=== PATIENT | male | born 1965 | race Caucasian/White ===

== ENCOUNTER 2018-04-20 15:12 | Outpatient (CLI) | payer OTHER, SELFPAY ==
--- NOTE | 2018-04-20 15:24 | DI.RAD_ITS ---
SYMPTOMS/DIAGNOSIS: LEFT POSTERIOR KNEE PAIN LEFT KNEE: Comparison is made with March,. The joint spaces are well maintained. There is mild periarticular spurring at the patellofemoral and medial femoral tibial joints. No joint effusion is seen. IMPRESSION: Mild degenerative changes.
== END 2018-04-20 15:32 ==
PROVIDERS: PCP Nurse Practitioner; Visit Provider Nurse Practitioner Adult Health
DX: M25.562 Pain in left knee (principal); M17.12 Unilateral primary osteoarthritis, left knee
CPT/HCPCS: 73564

== ENCOUNTER 2018-10-15 00:49 | Outpatient (CLI) | payer OTHER, SELFPAY ==
--- NOTE | 2018-10-15 14:42 | DI.MRI_ITS ---
SYMPTOMS/DIAGNOSIS: POSTERIOR KNEE PAIN, MEDIAL AND UNDERNEATH PATELLA, SWELLING, ? MEDIAL MENISCUS TEAR MRI OF THE LEFT KNEE: Routine noncontrast examination was performed. No priors. The anterior cruciate and posterior cruciate ligaments are intact, as are both the medial and lateral collateral ligaments, extensor mechanism, medial and lateral retinaculum and popliteus tendon. There is linear increased signal seen in the body of the medial meniscus. This may represent a tear versus degeneration. The lateral meniscus appears unremarkable. There is mild thinning of the articular cartilage in the medial femorotibial joint space. The articular cartilage is otherwise well maintained. There is a normal amount of fluid seen in the joint space. No suspicious soft tissue masses or focal fluid collections are seen. There is mild edema seen in the subchondral bone in the tibial plateau, but no evidence of an occult fracture or avascular necrosis is seen. The muscles show normal signal and size. IMPRESSION: 1. Tear versus degeneration involving the medial meniscus. 2. No evidence of a ligament tear.
== END 2018-10-15 01:09 ==
PROVIDERS: PCP Nurse Practitioner; Visit Provider Orthopaedic Surgery
DX: M25.562 Pain in left knee (principal); M23.304 Other meniscus derangements, unspecified medial meniscus, left knee
CPT/HCPCS: 73721

== ENCOUNTER 2018-10-21 12:26 | Day surgery (SDC) | payer OTHER, SELFPAY ==
[2018-10-21] VITALS (7 sets, daily range): BP systolic 128–143; BP diastolic 70–86; PULSE 65–78; RESP 13–20; TEMP 35.6–36.5; O2SAT 94–98
[2018-10-21] MEDS: Lactated Ringers 1,000 ML 80 ML IV ×2 (12:57→15:50)
--- NOTE | 2018-10-21 15:11 | W.PM.DSUDISC ---
Discharge Plan Disposition Patient Disposition: HOME Condition: Good Discharge Details Reason For Visit: INTERNAL DERANGEMENT L KNEE Attending Provider: David Hylton Primary Care Provider: Yael Almaguer Home Meds and New Rx's Prescriptions: New ibuprofen 800 mg tablet 800 mg PO TID Qty: 30 RF: 0 oxycodone-acetaminophen 5-325 mg tablet 1 tab PO Q6H PRN (Reason: pain) Qty: 10 RF: 0 Continued trazodone 50 MG tablet 50 mg PO HS Qty: 90 RF: 3 bisoprolol fumarate 10 MG tablet 10 mg PO DAILY Qty: 90 RF: 3 acyclovir 400 MG tablet 400 mg PO BID PRNRF: 0 Discharge Instructions Additional Instructions: Elevate L leg on 1-2 pillows as much as possible for next 48hours. Apply cryocuff to L knee every 4 hours for 1 hour each time. May leave it on and run continuously if you prefer. Crutches to walk. Put as much weight on L leg as your discomfort allows. Discontinue crutches when you can step on L leg with only mild pain. Remove dressings, shower, and get incisions wet after 48 hours. May leave incisions uncovered when they are dry and sealed. Outpatient physical therapy on Friday to mobilize L knee post-arthroscopic lateral meniscectomy. Follow up with in 2 weeks. Take ibuprofen 800 mg 3 times/day for 10 days for pain and inflammation. Take the oxycodone if needed, for breakthru pain. Stand Alone Forms: Anes.Nerve Block Instructions Referrals: David Hylton MD [ [facility] STAFF PHYSICIAN] - (f/u in 2 weeks.) Equipment/Supplies: Partial Weight Bearing Crutches Activity:: Activity as Tolerated Remove Dressings/Wound Care:: 48 hours Shower/Bathe:: 48 hours Diet:: As Tolerated Discharge Orders Discharge Orders: Discharge Order (Routine); Ordered 10/21/18 Ordered By: David Hylton DS: Diagnosis Discharge Diagnosis (1) Internal derangement of left knee: Status: Acute
[2018-10-21] MEDS: fentaNYL 100 MCG/2 ML VIAL IVP ×2 (15:42→15:51)
[2018-10-21] MEDS: HYDROcodone 5/Acetaminophen 325 TAB PO (16:41)
--- NOTE | 2018-10-23 16:04 | ROE_ITS ---
DATE OF PROCEDURE: October 21, 2018 PREOPERATIVE DIAGNOSIS: Internal derangement left knee. POSTOPERATIVE DIAGNOSIS: Internal derangement left knee due to torn left lateral meniscus. PROCEDURE: Arthroscopic partial left lateral meniscectomy and limited synovectomy. SURGEON: David Hylton M.D. ANESTHESIA: General. INDICATIONS: This is a 52-year-old white male with a greater than one-year history of atraumatic lef t knee pain. This interferes with his activities of daily living including just walking. He does no t remember any particular injury. He has been treated conservatively for the past year without relie f of symptoms. This has included exercise, anti-inflammatory medications, and intraarticular cortiso ne injections. Because of the persistence of symptoms despite conservative treatment, arthroscopy wa s recommended. He has had an MRI scan preoperatively which was nondiagnostic. There was slightly in creased linear signal seen in the medial meniscus but this finding was of questionable significance. I felt that a diagnostic arthroscopy was indicated to get a true diagnosis that would provide plan f or treatment. The risks and complications of the procedure were explained to the patient in detail p reoperatively. PROCEDURE: The patient was taken to the Operating Room on 10/21/18. He was placed supine on the oper ating table and a general anesthetic was administered. The left thigh was placed in the arthroscopic leg gonzalez and then the left knee was prepped and draped free in the usual sterile fashion. Arthros copic portals were established. The left knee was inflated with normal saline solution using the art hroscopy pump and then routine arthroscopic examination proceeded. Intraoperative photographs were o btained to document findings. Upon entering the medial compartment, the medial compartment articular surface showed minimal degener ative change. The medial meniscus appears intact. I probed the medial meniscus under direct vision and it was entirely stable. No occult tears were identified. The intercondylar notch showed intact anterior and posterior cruciate ligaments. Through an anterome dial portal the high-radiofrequency electrocautery wand was introduced into the knee. Synovium and a portion of the anterior fat pad were then debrided to gain better visualization and access to the la teral compartment. Upon entering the lateral compartment, he had a complex tear of the posterior hor n of the lateral meniscus beginning at the popliteus recess and extending to the posterior horn of th e meniscus. The torn portion of the meniscus was resected back to a stable rim using the high-radiof requency electrocautery wand. Following resection, the remaining rim of meniscus was probed under di rect vision and was fully stable. The articular cartilage in the lateral compartment showed very min imal degenerative change. Medial and lateral gutters were somewhat obscured by some hypertrophic synovium. A limited synovecto my was performed to restore medial and lateral gutters. The suprapatellar pouch was clear. The baker llofemoral joint showed normal patellar tracking and the articular cartilage in the patellofemoral orlando int was well preserved, with no particular injury. The left knee was then copiously irrigated with saline solution using the arthroscopy pump until the outflow was clear. Twenty cc's of 0.5% Marcaine with epinephrine solution along with 4 mg of morphin e were instilled into the left knee and then all instruments were removed from the knee. The arthros copy portals were infiltrated with 0.5% Marcaine with epinephrine solution and were approximated with interrupted #4-0 nylon sutures. Sterile dressings were applied, followed by a light pressure dressi ng to the left knee. The patient's anesthesia was reversed without complication. Blood loss was min imal and he was discharged to the Recovery Room in good condition. The patient was discharged home from the Day Surgery Unit when fully recovered from his general anest hesia. He was given instructions to use crutches to walk, weightbearing as tolerated to the left kne e. He is advised to elevate his left knee on one to two pillows as much as possible for the next 48 hours. He is to apply the Cryo/Cuff to the left knee four times a day for an hour each time. He may remove his dressings, shower and get his incisions wet after 48 hours. He can leave the incisions u ncovered when they are dry and sealed. He will begin outpatient Physical Therapy in 48 to 72 hours f or range of motion and strengthening of his left knee. He was given a prescription for inflammation of ibuprofen 800 mg p.o. t.i.d. for 10 days. He was given a prescription for breakthrough pain of Pe rcocet 5 mg/325 mg, 1 tablet every 4 hours as needed. He will follow up with Dr. Hylton in two weeks .
== END 2018-10-21 17:45 | disposition home or self-care (01) ==
PROVIDERS: PCP Nurse Practitioner; Visit Provider Orthopaedic Surgery
PROC: (CPT 29870; principal; 2018-10-21 14:00)
DX: M23.252 Derangement of posterior horn of lateral meniscus due to old tear or injury, left knee (principal); M65.9 Synovitis and tenosynovitis, unspecified; G47.33 Obstructive sleep apnea (adult) (pediatric); I10 Essential (primary) hypertension
CPT/HCPCS: 29881; E0114; J0690; J1100; J1885; J2405; J3010

== ENCOUNTER 2019-11-06 20:32 | Emergency (ER) | payer OTHER, SELFPAY ==
[2019-11-06 20:36] VITALS: BP 137/96; PULSE 74; RESP 16; TEMP 36.6; O2SAT 97
--- NOTE | 2019-11-06 20:53 | ED.GENADUL_ITS ---
Discharge Plan Disposition Patient Disposition: HOME Condition: Stable Discharge Details Chief Complaint: ThroatFB Clinical Impression: Food impaction of esophagus Primary Care Provider: Yael Almaguer ED Provider: Rona Corley Home Meds and New Rx's Prescriptions: New omeprazole 20 mg capsule,delayed release(DR/EC) 20 mg PO DAILY Qty: 7 RF: 0 No Action acyclovir 400 mg tablet 400 mg PO BID Qty: 60 RF: 6 bisoprolol fumarate 10 mg tablet 10 mg PO DAILY Qty: 90 RF: 3 trazodone 50 mg tablet 50 mg PO HS Qty: 90 RF: 3 Discharge Instructions Instructions: Food Impaction (ED) Additional Instructions: For any return of symptoms please have immediate reevaluation in the emergency room. For any throat pain, chest pain, back pain or abdominal pain have reevaluation in the emergency room. For any cough, difficulty breathing, nausea or vomiting have reevaluation Avoid any chunky food, or raw vegetables. Follow up with surgery - they will call on friday. To arrange for outpatient scope. Return for any worsening or concerns if needed sooner as discussed. Referrals: Fe Harris MD [ [facility] STAFF PHYSICIAN] - Medical Decision Making This is a 53-year-old patient arrives by personal car presenting to the emergency room for suspected food bolus. Patient reports he was cutting turkey, ate a large piece of turkey which lodged in his throat. Patient reports this occurred approximately 2 hours ago. Patient reports sensation of turkey being stuck in his throat. He did try to drink water which she was unable to pass. He attempted to drink soda which he was again unable to pass in for step through his nose. Patient speech is clear. Patient has no obvious drooling, he does report spitting some secretions intermittently. Patient denies any throat or neck pain, chest pain, back pain or abdominal pain. Patient is in no apparent distress at this time. Patient's vital signs reviewed and stable. Patient is a history of sleep apnea as well as hypertension managed with medications. Patient unable to pass soda in the ER. Spoke with Dr. Saleem of surgery who does recommend effervescent granules. Does report may repeat x1 if ineffective. After first attempt with granules patient was able to swallow the granules, was subsequently able to swallow water, does feel somewhat improved. Will observe. Patient feels entirely improved. No persistent foreign body sensation in his throat. Trial of p.o. patient able to swallow water, soda and eat crackers without difficulty. Patient feels comfortable discharge home at this time. Spoke with Dr. Saleem in follow-up to discuss improvement. She recommends omeprazole 20 mg once daily for 1 week she will thereafter follow-up. She also recommends outpatient upper scope electively. She will call the patient on Friday to follow-up and arrange for scope. Patient agrees with these plan as of care. Discussed avoidance of chunky foods and raw vegetables. Discussed alarming signs and symptoms for which patient should return. Patient reports his understanding. The patient was stable and requested discharge. Prior to discharge, my usual and customary return precautions were reviewed with the patient - this included follow-up instructions and reasons to return to the Emergency Department if conditions worsens, does not improve as expected, or other new concerns arise. HPI General Date/Time Provider Initiated Documentation: 11/06/19 20:34 . HPI Narrative: This is a 53-year-old patient presenting to the emergency room for concern of food impaction. Patient reports he was cutting turkey and cut a large piece of turkey which he tried to swallow. Patient reports he feels that the piece of turkey is stuck in his throat. Patient reports this occurred 2 hours prior to arrival. Patient presents to the emergency room in no apparent distress arrives by personal car. Is breathing without difficulty. Denies cough, shortness of breath, increase respiratory effort or difficulty breathing. Patient reports he did try swallowing soda which came up through his nose and mouth. He tried swallowing water which he was unable to swallow, came back up. Patient denies any vomiting, chest or abdominal pain. Denies back pain. Patient denies any other concerns or complaints at this time. Patient does report he had a history of 1 food impaction historically, swallowed steak, lodged in his throat, on lodged while he was in triage in the hospital waiting for evaluation. Patient is able to manage his own secretions he is not currently drooling. Denies voice change. Related Data Home Medications Medication Instructions Recorded Confirmed acyclovir 400 mg tablet 400 mg PO BID #60 tab 01/27/19 11/06/19 bisoprolol fumarate 10 mg tablet 10 mg PO DAILY #90 tab-cap 01/27/19 11/06/19 trazodone 50 mg tablet 50 mg PO HS #90 tab 01/27/19 11/06/19 omeprazole 20 mg PO DAILY #7 cap 11/06/19 Previous Rx's Medication Instructions Recorded acyclovir 400 mg tablet 400 mg PO BID #60 tab 01/27/19 bisoprolol fumarate 10 mg tablet 10 mg PO DAILY #90 tab-cap 01/27/19 trazodone 50 mg tablet 50 mg PO HS #90 tab 01/27/19 omeprazole 20 mg PO DAILY #7 cap 11/06/19 Allergies Allergy/AdvReac Type Severity Reaction Status Date / Time Penicillins Allergy Hives Verified 11/06/19 20:40 cyclobenzaprine HCl AdvReac sleepiness Verified 11/06/19 20:40 [From Flexeril] General Stated Complaint: ThroatFB BEATRICE: 3 Review of Systems Constitutional Constitutional: Denies chills and Denies fever(s) ENT Ears, Nose, Mouth, and Throat: Denies change in voice, Reports dysphagia, Denies hoarseness, Denies nasal obstruction, Denies neck pain, Denies sore throat and Denies throat swelling Cardiovascular Cardiovascular: Denies chest pain and Denies dyspnea Respiratory Respiratory: Denies cough, Denies dyspnea and Denies wheezing Gastrointestinal Gastrointestinal: Denies abdominal pain, Denies belching, Denies bloating, Denies cramping, Reports dysphagia, Denies heartburn, Denies diarrhea, Denies nausea and Denies vomiting Musculoskeletal Musculoskeletal: Denies neck pain Allergic/Immunologic Allergic/Immunologic: Denies throat swelling and Denies wheezing [facility] Medical History Colon polyp Heartburn Hemorrhoids Hypertension (Chronic) Obstructive sleep apnea syndrome Social History Smoking/Tobacco Use Status: Never Alcohol Intake: never Drug use: Daily Substance use type: marijuana Household members: other Details: lives w/ GF and 2 others to total 4 Communication Needs: None 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 Well hydrated. Alert and oriented. HENMT: Head nomocephalic, normal to inspection. Atraumatic. Hearing grossly normal. Normal-appearing posterior pharynx. No drooling. Normal speech EYES: General normal appearance. Alignment normal. Eyelids normal. Conjunctiva normal. NECK: Normal visual inspection. FROM. Trachea midline. No Midline tenderness. CHEST: Normal insepection of the chest. RESP: Normal respiratory effort. Speaking full sentences. No cough. No audible wheezing. No retractions. Breath sounds clear, full and equal bilaterally. No wheezing, rhonchi or rales CARDIO: No JVD. No murmur. Regular rate and rhythm NEURO: Alert and awake. Speech clear. PSYCH: Normal affect. Cooperative. Course Vital Signs Vital signs: Vital Signs Temperature 36.6 C 11/06/19 20:36 Pulse 74 11/06/19 20:36 Respiratory Rate 16 11/06/19 20:36 Blood Pressure 137/96 H 11/06/19 20:36 Pulse Oximetry 97 11/06/19 20:36 Temperature 36.6 C 11/06/19 20:36 Temperature Source Skin 11/06/19 20:36 Pulse 74 11/06/19 20:36 Respiratory Rate 16 11/06/19 20:36 Respiratory Effort Non-Labored 11/06/19 20:43 Respiratory Pattern Normal 11/06/19 20:43 Blood Pressure 137/96 H 11/06/19 20:36 Pulse Oximetry 97 11/06/19 20:36 Pain Level 0 11/06/19 20:36
[2019-11-06] MEDS: Simethicone/Sod Bicarb/Cit Ac, 4 gram PACKET 1 PACKET PO (20:56)
[2019-11-06 21:36] VITALS: BP 119/83; PULSE 68; RESP 18; O2SAT 96
== END 2019-11-06 21:40 | disposition home or self-care (01) ==
PROVIDERS: Emergency Provider Physician Assistant; PCP Nurse Practitioner
DX: T18.128A Food in esophagus causing other injury, initial encounter (principal); I10 Essential (primary) hypertension
CPT/HCPCS: 99283

== ENCOUNTER 2020-03-10 01:56 | Outpatient (CLI) | payer OTHER, SELFPAY ==
[2020-03-10 07:44] LABS: HCT 47.2 % (40.0-50.0); HGB 15.2 g/dL (13.5-17.5); MCH 27.1 pg (27.0-33.0); MCHC 32.2 % (32.0-36.0); MCV 84.3 fL (80-95); Platelet Count 240 10^3/uL (130-400); RDW 14.6 % (11.8-14.1); RDW-SD 44.8 fL; WBC 8.23 10^3/uL (4.4-10.8)
[2020-03-10 08:33] LABS: ALT 39 U/L (16-63); AST 12 U/L (15-37); Albumin 3.5 g/dL (3.4-5.0); Alkaline Phosphatase 101 U/L (46-116); Anion Gap 6.8 mmol/L (3-11); BUN 12 mg/dL (7-18); Bilirubin, Total 0.7 mg/dL (0.2-1.0); CO2 24.2 mmol/L (21.0-32.0); CREATININE 0.94 mg/dL (0.70-1.30); Calcium 9.1 mg/dL (8.5-10.1); Calculated LDL 92 mg/dL (<100); Chloride 106 mmol/L (98-107); Cholesterol 158 mg/dL (<200); Glucose 95 mg/dL (74-106); HDL Cholesterol 35 mg/dL (40-60); Potassium 4.4 mmol/L (3.5-5.1); Sodium 137 mmol/L (136-145); Total Protein 6.8 g/dL (6.4-8.2); Triglyceride 156 mg/dL (<150)
[2020-03-10 08:43] LABS: Hemoglobin A1C 5.9 % (3.8-5.6)
== END 2020-03-10 02:16 ==
PROVIDERS: PCP Nurse Practitioner; Visit Provider Nurse Practitioner
DX: E66.9 Obesity, unspecified (principal); E78.1 Pure hyperglyceridemia; I10 Essential (primary) hypertension; Z83.3 Family history of diabetes mellitus
CPT/HCPCS: 36415; 80053; 80061; 85027; 83036

== ENCOUNTER 2020-04-07 02:20 | Outpatient (CLI) | payer OTHER, SELFPAY ==
[2020-04-08 12:35] LABS: COVID-19 RT-PCR Result NEGATIVE (Negative)
== END 2020-04-07 02:40 ==
PROVIDERS: PCP Nurse Practitioner; Visit Provider Surgery
DX: Z01.818 Encounter for other preprocedural examination (principal)
CPT/HCPCS: U0003

== ENCOUNTER 2020-04-10 06:16 | Day surgery (SDC) | payer OTHER, SELFPAY ==
[2020-04-10 06:23] VITALS: BP 137/93; PULSE 64; RESP 16; TEMP 36.1; O2SAT 97
--- NOTE | 2020-04-10 06:49 | ENDO_ITS ---
Date of service: 04/10/20 Time of Service: 07:43 Endoscopy Report DATE OF PROCEDURE: 04/10/20 PRE-OP DIAGNOSIS: Dysphagia POST-OP DIAGNOSIS: other (Duodenitis, Gastritis, esophagitis) PROCEDURE: EGD with biopsies SURGEON: Alondra Zhang ANESTHESIA: other (General/ ASA 2/Mana Viramontes, MIAH) ESTIMATED BLOOD LOSS: 5 PATHOLOGY: other (Duodenal bx, antrum bx, GE junction bx) COMPLICATIONS: None DISPOSITION: same day INDICATIONS: Patient with persistent difficulty swallowing and food getting stuck. Most recent ER visit for food impaction was in October 2019. Encouraged him to avoid caffeine, chocolate and spicy foods, in addition to not eating at least 2 hours before bed to reduce his GERD symptoms. He will start taking his omeprazole daily, regardless of if he is having symptoms or not. -Discussed Upper endoscopy procedure and the need to be NPO after midnight the night prior. Discussed possible complications of the procedure to include bleeding, pain, perforation, missed small lesion/polyp/ulcers, sore throat, asp iration and adverse reaction to the medications or sedation. Questions were answered to patient?s satisfaction. No guarantees were implied or given. PROCEDURE START TIME: 07:28 PROCEDURE END TIME: 07:36 FINDINGS: Inflammation of the duodenum and stomach as well as mild inflammation of the esophagus PROCEDURE DESCRIPTION: After informed consent was obtained the patient was take to the procedure room and placed in a supine position. Monitors were applie d and a time out was done. The patients name, date of , procedure type, allergies to medications and metal in their body was reviewed. A bite block was placed and the patient was sedated. Once sedated and comfortable the gastroscope was advanced through the oropharynx which was grossly normal into the esophagus. The proximal and mid- esophagus were normal. In the distal esophagus there was mild inflammation noted. The scope was advanced into the stomach and through the pylorus into the 3rd portion of the duodenum. The 2nd and 3rd portion of the duodenum was noted to be normal. There was moderate inflammation of the 1st portion of the duodenum. No ulcers were noted. Biopsies were done. The scope was retracted back into the stomach. There was mild inflammation of the stomach. Biopsies were done of the antrum to rule out H. pylori. There were no ulcers. The scope was retro-flexed. The cardia and fundus were noted to be normal. There was no hiatal hernia noted. The scope was retracted back into the esophagus and biopsies were done of the GE junction to rule out Coleman's. The Z line was regular. The GE junction was at 40 cm. The scope was removed and the patient was woken up and taken back to [facility] in stable condition. Follow up: 2 weeks in the office.
[2020-04-10] MEDS: Lactated Ringers 1,000 ML 80 ML IV (06:50)
--- NOTE | 2020-04-10 06:51 | PDOC.DSDIS_ITS ---
Discharge Plan Disposition Patient Disposition: HOME Condition: Stable Discharge Details Reason For Visit: EGD Attending Provider: Alondra Zhang Primary Care Provider: Yael Almaguer Home Meds and New Rx's Prescriptions: New omeprazole 40 mg capsule,delayed release(DR/EC) 40 mg PO DAILY Qty: 90 RF: 0 sucralfate 1 gram tablet 1 gm PO TID Qty: 90 RF: 0 Continued trazodone 50 mg tablet 50 mg PO HS Qty: 90 RF: 3 acyclovir 400 mg tablet 400 mg PO HS RF: 0 bisoprolol fumarate 10 mg tablet 10 mg PO HS RF: 0 Discontinued omeprazole 20 mg capsule,delayed release(DR/EC) 20 mg PO PRN RF: 0 Discharge Instructions Instructions: Gastritis (DC), Diet for Stomach Ulcers and Gastritis (ED), Esophagitis (DC), Duodenitis (DC) Additional Instructions: Findings: Inflammation of the small bowel, stomach and esophagus Follow up: 2 weeks in the office Please call if you develop: fevers >101.5 Nausea or Vomiting Abdominal pain that is not transient DAY SURGERY UNIT POST ENDOSCOPY INSTRUCTIONS 1. Because there will be medication in your system for the next 24 hours, you may feel a little sleepy. Your coordination will be affected. Therefore: a. Do not drive or operate dangerous equipment for 24 hours. b. Do not drink alcohol beverages for 24 hours (not even beer). c. Plan to go home and rest for the day. 2. Generally there are no restrictions on your activity after a day or so has gone by, but you may feel a bit fatigued for a few days. 3 After you arrive home you may have a light meal and return to a normal diet as you can tolerate it without feeling sick to your stomach. 4. After surgery, you may feel pain or discomfort. This should be only transi ent, but if it persists please contact your doctor. 5. If there are any questions regarding the findings of your procedure, please feel free to contact your doctor. 6. If you are unable to contact your doctor with a problem, contact the hospital at [phone]. 7. Continue all your regular medications unless directed otherwise. I understand the above instructions and have no questions. Signature of Patient or Responsible Adult Escort Date/Time Name of Responsible Adult Escort Signature of Nurse Date/Time Referrals: Alondra Zhang MD [ [facility] STAFF PHYSICIAN] - 04/25/20 9:30 am Activity:: Activity as Tolerated Diet:: Low acid Discharge Orders Discharge Orders: Discharge Order (Routine); Ordered 04/10/20 Ordered By: Alondra Zhang
--- NOTE | 2020-04-10 07:30 | STOM_PTH ---
PATIENT: Enoch Massey LOC: [facility] U#:[id number] AGE/SX: 54/M ROOM: RE04/10/[address]: Alondra Zhang MD : [id number] BED: DIS: 04/10/2020 SPEC #: [id number] RECD: 04/10/20 09:39 STATUS: PATRICK RE #: [id number] PAULINA: 04/10/20 07:[address]: Alondra Zhang DEPT: Surgical Specimen RECD BY: Eula Gay ENTERED: 04/10/20 09:44 SP TYPE: STOMACH OTHR DR: Yael Almaguer APRN Tissues: 1 - STOMACH BIOPSY 2 - STOMACH BIOPSY 3 - STOMACH BIOPSY Procedures: GROSS AND MICRO LEVEL 4 Comments: [id number]
[2020-04-10 08:15] VITALS: BP 121/61; PULSE 67; RESP 16; TEMP 36.2; O2SAT 96
== END 2020-04-10 08:27 | disposition home or self-care (01) ==
PROVIDERS: PCP Nurse Practitioner; Visit Provider Surgery
PROC: 0DJ68ZZ Inspection of Stomach, Via Natural or Artificial Opening Endoscopic (ICD-10-PCS; CPT 43235; principal; 2020-04-10 07:30)
DX: K29.80 Duodenitis without bleeding (principal); K29.70 Gastritis, unspecified, without bleeding; K21.0 Gastro-esophageal reflux disease with esophagitis; E66.9 Obesity, unspecified; I10 Essential (primary) hypertension; G47.30 Sleep apnea, unspecified; R13.10 Dysphagia, unspecified
CPT/HCPCS: 43239; 88305; J2001; J2704

== ENCOUNTER 2021-04-19 01:18 | Outpatient (CLI) | payer OTHER, SELFPAY ==
--- NOTE | 2021-04-19 09:00 | DI.MRI_ITS ---
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 COMPARISON: CR XR knee LT 4V+ from 04/20/2018 CR XR knee LT 4V+ from 04/20/2018 MR MR lower joint LT wo from 10/15/2018 MR MR lower joint LT wo from 10/15/2018 FINDINGS: EFFUSION: There is a small amount of increased joint fluid. There is a thin Ordonez's cyst in the medi al popliteal fossa which measures approximately 4 cm craniocaudal by 2.8 cm AP by 0.5 cm wide. MARROW:There is subarticular edema and degenerative cysts in the medial tibial plateau, similar to pr evious. Also milder amount of subarticular edema in the posterior aspect of the lateral tibial plate au. There are no significant osseous lesions. PATELLOFEMORAL COMPARTMENT: The quadriceps tendon is intact. The patellar ligament is intact. There is mild thinning of the retropatellar cartilage over the medial facet. No osteochondral defect s. No subarticular signal abnormality in the posterior patella.No patellar retinacular tears. CRUCIATE LIGAMENTS: The anterior cruciate ligament is intact.The posterior cruciate ligament is intac t. MEDIAL COMPARTMENT/MEDIAL MENISCUS: There is a slightly complex tear in the posterior horn of the med ial meniscus. No bucket-handle configuration. The main component of the tear violates inferior lelo cular surface, best seen on the sagittal images. There is mild aortic striation of the meniscus but without gutter descent. No meniscocapsular separation. There is no obvious tear of the anterior hor n.. There is significant thinning of the cartilage over the medial condyle. No evidence of osteochondral defect nor significant subarticular edema in the femoral condyle. Well-defined area of subarticular degenerative cyst is seen in the anterior tibial plateau subjacent to the anterior horn of the media l meniscus, this measuring 12 millimeters wide by 13 millimeters AP x 6 millimeters deep. There is n o prominent surrounding edema.There are marginal osteophytes off both the outer and inner aspects of the medial femoral condyle, these previously evident on the October 2018 study. MEDIAL COLLATERAL LIGAMENT: Intact LATERAL COMPARTMENT/LATERAL MENISCUS: There is a tear in the posterior horn of the lateral meniscus a t the free edge level. Also horizontal signal abnormality in the anterior horn with suggestion of te ar of the anterior horn lateral meniscus also evident. No prominent extrusion.There is significant l oss of cartilage thickness over the lateral femoral condyle. No osteochondral defects. There are al so marginal osteophytes seen off both the inner and outer aspect of the lateral femoral condyle, this more evident than previous. There is a degenerative subarticular cyst measuring 5 x 4 millimeters i n the sub spinous tibial plateau. ILIOTIBIAL BAND: Intact LATERAL COLLATERAL LIGAMENT COMPLEX: The fibular collateral ligament is intact. The biceps femoris t endon is intact.Popliteus muscle and tendon are intact. IMPRESSION: 1. There are tears of both menisci as described above. Mild extrusion. No intrusion of meniscal com ponents. No meniscocapsular separation. No degenerative meniscal cysts. 2. Significant cartilage loss over both femoral condyles noted and there are marginal osteophytes off the inner and outer aspects of both femoral condyles but no evidence of osteochondral defects nor pr ominent subarticular intraosseous edema in the femoral condyles. There is some bone signal consisten t with degenerative subarticular change in both sides of tibial plateau, anteriorly on the medial asp ect of posteriorly on the lateral tibial plateau. Also degenerative subarticular cyst in the sub spi nous tibial plateau. 3. Cruciate and collateral ligaments appear intact, as does the iliotibial band. 4. There is minimal thinning of the retropatellar cartilage over the medial facet. There is no abnor mal intraosseous signal seen in the posterior patella. 5. There is a small joint effusion. There is also a thin Ordonez cyst in the popliteal fossa. DATA REPOSITORY:
== END 2021-04-19 01:38 ==
PROVIDERS: PCP Nurse Practitioner; Visit Provider Specialist
DX: M25.562 Pain in left knee (principal); M94.262 Chondromalacia, left knee; M22.2X2 Patellofemoral disorders, left knee; M25.462 Effusion, left knee; S83.282A Other tear of lateral meniscus, current injury, left knee, initial encounter; S83.232A Complex tear of medial meniscus, current injury, left knee, initial encounter; M71.22 Synovial cyst of popliteal space [Baker], left knee
CPT/HCPCS: 73721

== ENCOUNTER → 2022-02-15 00:53 | Outpatient (CLI) | payer OTHER, SELFPAY ==
--- OUTSIDE RECORDS SUMMARY | 2022-02-15 01:02 | XMS_ITS | Encounter Summary ---
:1965 Author Organization [facility] Address [address] [place] [address] Care Team Providers Name Role Phone Yael Almaguer Jesus EXHIBIT BUILDER Primary Care Provider Encounter Details Date Type Department Care Team Description 04/10/2020 Lab Requisition [facility] Paddy Zhang for other Pathology & MD Kiley general examination Laboratory Medicine [address] [place], [place] [address] [facility] [id number] [place] [address] [id number] Social History Tobacco Use Types Packs/Day Years Used Date Never Assessed Sex Assigned at Date Recorded Not on file documented as of this encounter Plan of Treatment Not on filedocumented as of this encounter Procedures Procedure Name Priority Date/Time Associated Diagnosis Comme nts SURGICAL PATHOLOGY Today 04/10/2020 7:30 EDT Encounter for o ther Results for this general examination procedur e are in the results section. documented in this encounter Results SURGICAL PATHOLOGY (04/10/2020 7:30 EDT) Final Diagnosis A. DUODENUM, BIOPSY: [facility] - Peptic duodenitis. [facility] B. STOMACH, ANTRUM, BIOPSY: SERVICES - Antral and fundic mucosa with mild reactive (chemica l) gastropathy. - Negative for Helicobacter pylori microorganisms on H &E stained sections. C. GASTROINTESTINAL JUNCTION, BIOPSY: - Gastric-type mucosa with m xoy-vn-knaeuwmi active chronic inflammation and mild foveolar hyperplasia. - Negative for intestinal metaplasia. - Mild focal epithelial inflammatory atypia, negative for dysplasia. - Squamous mucosa with reflux esophagitis. Attestation There was significant [facility] Electr onically resident/fellow CENTER signed by radha Melendez in the LABORATORY Gonzalo Ha on diagnostic evaluation SERVICES 04/12/20 20 at 0919 of this case. By the signature below, the attending physician certifies that they have personally conducted a gross and/or microscopic examination of the described specimens and rendered or confirmed the above diagnosis. Clinical History Dysphagia; GERD [facility] Gross Description A. [facility] Received in formalin janusz d with proper patient identification (initials B, W) and 1. Duodenum Bx are 4 galindo-brown tissues (0.2 x 0.2 x 0.1 cm to 0.4 x 0.4 x 0.2 cm). Submitted in toto in A1 and A2. [facility] B. SERVICES Received in formalin janusz d with proper patient identification (initials B, W) and 2. Antrum Bx are 4 galindo-pink tissues (0.2 x 0.1 x 0.1 cm to 0.8 x 0.3 x 0.2 cm). Submitted in toto in B1 and B2. C. Received in formalin janusz d with proper patient identification (initials B, W) and 3. Eg junction are 3 galindo-white tissues (0.2 x 0.1 x 0.1 cm to 0.6 x 0.3 x 0.2 cm). Submitted in toto in C1. Florinda Leyva 04/10/2020 16:36 Resident/Fellow: Zaida Renae MD [facility] Performing Lab [facility] Scanned Images [facility] Specimen Tissue - Entire esophago-gastric mucosal junction (body structure) Tissue specimen (specimen) - Gastric/Sto mach, Antrum Tissue specimen (specimen) - Entire esop hago-gastric mucosal junction (body structure) Performing Organization Address City/State/ZIP Code Phon e Number [facility] [address] [place] [address] SERVICES documented in this encounter Visit Diagnoses Diagnosis Encounter for other general examination documented in this encounter Care Teams Thread Inspector Relationship Specialty Start Date End Date Yael Almaguer NP PCP - General 04/10/20 documented as of this encounter
--- OUTSIDE RECORDS SUMMARY | 2022-02-15 01:02 | XMS_ITS | Encounter Summary ---
:1965 Author Organization [facility] Address [address] [place] [address] Care Team Providers Name Role Phone Unknown, Provider Primary Care Provider Encounter Details Date Type Department Care Team Description 11/27/2012 Results Only [facility] Heller, JonnyDO [phone] [facility] [place] [address] Social History Tobacco Use Types Packs/Day Years Used Date Never Assessed Sex Assigned at Date Recorded Not on file documented as of this encounter Plan of Treatment Not on filedocumented as of this encounter Procedures Procedure Name Priority Date/Time Associated Diagnosis Comme [facility] SURGICAL PATHOLOGY Routine 11/27/2012 9:09 EDT Re sults for this procedure are i n the results section. documented in this encounter Results SURGICAL PATHOLOGY (11/27/2012 9:09 EDT) Pathology Report: SURGICAL PATHOLOGY REPORT KAREN MARC Reports generated via electronic interface contain michael ginal data; LAB however they are lacking the format of the original re port. Caution should be taken when reading/interpreting unfo rmatted reports. Name: ? ENOCH POWER ? Accession #: ? [id number] ? : ? 1965 (Age: 46) ??M ? Collect Date: ? 11/27/2012 ? Location: ? [facility] ? Receive Date: ? 013 ? Provider: JONNY HELLER DO Copy to: AMINAH SUSIE SHIP RIGGER ? Final Pathologic Diagnosis: ? Colon, polyp, 35 cm, biopsy: - Tubular adenoma with focal villous features. Document reviewed and electronically signed by: DREW FAUSTIN MD Report ??Date: 12/02/2012 18:14 By the signature above, the attending physician certif ies that he/she has personally conducted a gross and/or microscopic examin ation of the described specimens and rendered or confirmed the above diagnosi s. Specimen(s) Received: ? Polyp 35 cm Clinical History: ? Anal/rectal bleeding Gross Description: ? Received in formalin labelled Enoch Power and polyp 35 cm are seven galindo-pink irregular soft tiss ue fragments ranging from 0.5 x 0.2 x 0.2 cm to 1.0 x 0.5 x 0.4 cm. ??The specimen is entirely submitted a s follows: BLOCK GLOVER 1 ?Largest tissue fragment bisected 2 ?Section largest tissue fragment bisect ed 3, 4 ?Remaining tissue fragments intact (Amanda Stewart)/mpl End of Report Specimen Performing Organization Address City/State/ZIP Code Phon e Number [facility] [address] [place] [address] SERVICES [facility] [address] [place] [address] documented in this encounter Visit Diagnoses Not on filedocumented in this encounter Care Teams Beach Attendant Relationship Specialty Start Date End Date Unknown, Provider, PCP - General 11/28/12 12/03/12 documented as of this encounter
--- OUTSIDE RECORDS SUMMARY | 2022-02-15 01:02 | XMS_ITS | Encounter Summary ---
:1965 Author Organization [facility] [place] [address] Care Team Providers Name Role Phone Yael Almaguer APRN Primary Care Provider Reason for Visit Reason Comments Follow-up Encounter Details Date Type Department Care Team Description 04/10/2017 [facility] [address] [facility] [address] [place] [address] DERMATOLOGY [phone] [place], [place] [address] (Wo rk) Social History Tobacco Use Types Packs/Day Years Used Date Never Smoker Smokeless Tobacco: Never Used Sex Assigned at Date Recorded Not on file documented as of this encounter Progress Notes Alexy Law MD - 04/10/2017 3:45 PM EDT PROBLEM: Acrochordons. Kendall follows up after last being seen in September for right hand erythematous changes following endoscopic carpal-tunnel release. He is here today, however, regarding numerous skin tags that he would like to have removed. PHYSICAL EXAMINATION: Reveals tags present around his eyes, in the upper and lower eyelids, in the axillary vaults bilaterally, several also around the base of the neck. A/P: Tags. a. After obtaining informed consent, the sites were anesthetized and removed with electrodesiccation and snip biopsy. b. Wound care instructions and supplies given. c. Return to clinic p.r.n. for new lesions/concerns. d. Should there be any remaining tags that were not adequately treated after today's visit, would then recommend that I see him again for further tag removals. cc: Yael Almaguer APRN documented in this encounter Plan of Treatment Not on filedocumented as of this encounter Visit Diagnoses Diagnosis Acrochordon Unspecified hypertrophic and atrophic co ndition of skin documented in this encounter Care Teams Power Lineman Relationship Specialty Start Date End Date Yael Almaguer APRN PCP - General Internal Medicine 09/23/[address] [place] [address] documented as of this encounter
--- OUTSIDE RECORDS SUMMARY | 2022-02-15 01:02 | XMS_ITS | Encounter Summary ---
:1965 Author Organization [facility] Address [address] [place] [address] Care Team Providers Name Role Phone Jess Hinton APRN Primary Care Provider [phone] Encounter Details Date Type Department Care Team Description 02/21/2016 Hospital Encounter [facility] Unknown, Provider, [facility] [address] [facility] [phone] [place] [address] (Work) [phone] Social History Tobacco Use Types Packs/Day Years Used Date Never Assessed Sex Assigned at Date Recorded Not on file documented as of this encounter Discharge Disposition Disposition Code Departure Means Destination Home or Self [facility] documented in this encounter Plan of Treatment Not on filedocumented as of this encounter Visit Diagnoses Not on filedocumented in this encounter Care Teams Radiologic Therapist Relationship Specialty Start Date End Date Jess Hinton APRN PCP - General 12/04/12 04/09/20 [address] [place] [address] documented as of this encounter
--- OUTSIDE RECORDS SUMMARY | 2022-02-15 01:02 | XMS_ITS | Encounter Summary ---
:1965 Author Organization [facility] Address [address] [place] [address] Care Team Providers Name Role Phone Jess Hinotn Amaris GARDNER Primary Care Provider [phone] Encounter Details Date Type Department Care Team Description 02/21/2016 Results Only [facility] Jonny Heller DO [phone] [facility] [place] [address] Social History Tobacco Use Types Packs/Day Years Used Date Never Assessed Sex Assigned at Date Recorded Not on file documented as of this encounter Plan of Treatment Not on filedocumented as of this encounter Procedures Procedure Name Priority Date/Time Associated Diagnosis Comme [facility] SURGICAL PATHOLOGY Routine 02/21/2016 17:34 Resul ts for this EDT procedure are i n the results section. documented in this encounter Results SURGICAL PATHOLOGY (02/21/2016 17:34 EDT) Pathology Report: SURGICAL PATHOLOGY REPORT [facility] Reports generated via electronic interface contain michael ginal data; LABORATORY however they are lacking the format of the original re port. SERVICES Caution should be taken when reading/interpreting unfo rmatted reports. Name: ? ENOCH POWER ? Accession #: ? [id number] ? : ? 1965 (Age: [age]) ??M ? Collect Date: ? 02/21/2016 ? Location: ? [facility] ? Receive Date: ? 02/21/20 16 ? Provider: JONNY HELLER DO Copy to: SHANA JOLLY LINER HELPER ? Final Pathologic Diagnosis: COLON, CECUM, POLYP, BIOPSY: - ??Fragment of inflammatory polyp with lymphoid aggre gate. See comment. Comment: Deeper levels examined. Document reviewed and electronically signed by: ALOK EATON MD Report ??Date: 02/26/2016 11:59 By the signature above, the attending physician certif ies that he/she has personally conducted a gross and/or microscopic examin ation of the described specimens and rendered or confirmed the above diagnosi s. Specimen(s) Received: Cecal polyp Clinical History: Hx polyps; clinical diagnosis code: ??Z86.010 Gross Description: ? Received in formalin labelled with proper patient identification (initials B, W) and cecal polyp is a 0.3 x 0.2 x 0.2 cm galindo-br own tissue. Entirely submitted in 1Cipriano Waddell 02/22/2016 9:01 AM End of Report Specimen Performing Organization Address City/State/ZIP Code Phon e Number [facility] [address] [place] [address] SERVICES documented in this encounter Visit Diagnoses Not on filedocumented in this encounter Care Teams Ecg Technician Relationship Specialty Start Date End Date Jess Hinton APRN PCP - General 12/04/12 04/09/[address] [place], [place] [address] documented as of this encounter
--- OUTSIDE RECORDS SUMMARY | 2022-02-15 01:02 | XMS_ITS | Clinical Summary ---
:1965 Author Organization [facility] Address [address] [place] [address] Care Team Providers Name Role Phone Yael Almaguer RESEARCH & ANALYTICS MANAGER Primary Care Provider Social History Tobacco Use Types Packs/Day Years Used Date Never Assessed Sex Assigned at Date Recorded Not on file Plan of Treatment Not on file Care Teams Recapper Relationship Specialty Start Date End Date Yael Almaguer, RESEARCH & ANALYTICS MANAGER PCP - General 04/10/20
--- OUTSIDE RECORDS SUMMARY | 2022-02-15 01:02 | XMS_ITS | Encounter Summary ---
:1965 Author Organization [facility] Address [place] [id number] Care Team Providers Name Role Phone Yael Almaguer JJ Primary Care Provider Reason for Visit Reason Comments Skin Check Encounter Details Date Type Department Care Team Description 09/23/2016 Office Visit Dermatology at [facility] Alexy Law MD [facility] [address] [place] [address] [facility] [place] [address] [place] [address] [phone] (Wo rk) Social History Tobacco Use Types Packs/Day Years Used Date Never Smoker Sex Assigned at Date Recorded Not on file documented as of this encounter Progress Notes Alexy Law MD - 09/23/2016 3:15 PM EST Problem : Right hand erythematous changes following endoscopic carpal tunnel release. Enoch is a 50-year-old gentleman who on June 19 underwent an endoscopic carpal tunnel release at the right wrist after nightly use of a wrist brace did not relieve his carpal tunnel symptoms. After the dressing was removed the very first time, 2 days postoperatively, the patient states that he first noted increased erythema of the thenar and hypothenar eminences of that right hand. There was no itching, no dermatitis. He also noticed that the distal fingertip beyond the right DIP joint was entirely numb. He did not have that problem preoperatively. The patient was seen back on the 10th postoperative day by Dr. Hylton, and when seen a month later by Dr. Barrett was given a course of cephalexin 500 t.i.d. for 3 days for the hand rash without benefit and referred today. He was then seen on September [address] Hylton and referral made to see me. The patient states that if he uses his right hand a lot that he will get numbness not only in the 3rd finger at the tip but also in the 2nd and 4th fingers in the distal tip. It is present both on the palmar and dorsal aspects of the affected fingers. The patient seen in consultation for David Hylton MD. Physical examination reveals blanchable erythema of the right thenar and hypothenar eminences. He has some slight erythema also of the left hand. There is no vesiculation, no dermatitis. No primary dermatologic findings. He has otherwise good use of the right hand with strength. ASSESSMENT AND PLAN: The right palmar hand thenar and hypothenar eminence erythema. a. This appeared to be vascular dilatation perhaps still related to his surgical procedure. b. This may be associated with the new hypoesthesia of the left distal third digit. c. Reassured the patient that in time I discussed that this should improve. I see no evidence of infection or a primary dermatitis. I recommend that I see him back again p.r.n. cc: David Hylton MD documented in this encounter Plan of Treatment Not on filedocumented as of this encounter Visit Diagnoses Diagnosis Vasodilatation Peripheral vascular disease, unspecified documented in this encounter Care Teams Laboratory Animal Care Veterinarian Relationship Specialty Start Date End Date Yael Almaguer APRN PCP - General Internal Medicine 09/23/[address] [place] [address] documented as of this encounter
--- OUTSIDE RECORDS SUMMARY | 2022-02-15 01:02 | XMS_ITS | Encounter Summary ---
:1965 Author Organization [facility] Address [address] [place] [address] Care Team Providers Name Role Phone Jess Hinton APRN Primary Care Provider [phone] Encounter Details Date Type Department Care Team Description 05/13/2014 Hospital Encounter [facility] Unknown, Provider, [facility] [address] [facility] [phone] [place] [address] (Work) [phone] Social History Tobacco Use Types Packs/Day Years Used Date Never Assessed Sex Assigned at Date Recorded Not on file documented as of this encounter Discharge Disposition Disposition Code Departure Means Destination Home or Self Intermediate documented in this encounter Plan of Treatment Not on filedocumented as of this encounter Visit Diagnoses Not on filedocumented in this encounter Care Teams Paper Cone Grader Relationship Specialty Start Date End Date Jess Hinton APRN PCP - General 12/04/12 04/09/20 [address] [place] [address] documented as of this encounter
--- NOTE | 2022-02-15 07:45 | DI.MRI_ITS ---
Exam(s) MR LOWER JOINT RT WO EXAM: MR LOWER JOINT RT WO CLINICAL HISTORY: MEDIAL MENISCUS TEAR, S83.249A, ACUTE MENISCUS TEAR, RT KNEE, S83.206A. TECHNIQUE: Multiplanar multisequence MRI was performed. COMPARISON: CR XR knee LT 4V+ from 04/20/2018 MR MR LOWER JOINT LT WO from 04/19/2021 FINDINGS: BONES: There is no fracture or contusion pattern. JOINTS: Articular cartilage thinning over the medial femoral condyle. A small to moderate-sized effu shira is present. TENDONS: Extensor mechanism: Unremarkable. Medial retinaculum: Unremarkable. Lateral retinaculum: Unremarkable. Popliteus: Unremarkable. MUSCLES: Unremarkable. MENISCI: The medial meniscus shows a radially oriented tear with disruption in the posterior horn. T here is also some horizontal increased signal seen in the posterior horn and body. The lateral menis cus is unremarkable. SOFT TISSUES: Mild edema. Ordonez's cyst roughly 5 cm in length. LIGAMENTS: Anterior Cruciate: Unremarkable. Posterior Cruciate: Unremarkable. Medial Collateral:Unremarkable. Lateral Collateral: Unremarkable. IMPRESSION: Radial tear with separation at the posterior horn of the medial meniscus. Additional horizontally or iented tear in the posterior horn and body. DATA REPOSITORY:
== END ==
PROVIDERS: PCP Nurse Practitioner; Visit Provider Physician Assistant
DX: S83.241A Other tear of medial meniscus, current injury, right knee, initial encounter (principal); X58.XXXA Exposure to other specified factors, initial encounter
CPT/HCPCS: 73721

== ENCOUNTER 2022-04-17 04:13 | Outpatient (CLI) | payer OTHER, SELFPAY ==
[2022-04-17 07:56] LABS: HCT 45.9 % (40.0-50.0); HGB 15.7 g/dL (13.5-17.5); MCH 27.8 pg (27.0-33.0); MCHC 34.2 % (32.0-36.0); MCV 81 fL (80-95); MPV 10.4 fL (8.0-11.0); Platelet Count 248 10^3/uL (130-400); RBC 5.64 10^6/uL (4.36-5.78); RDW 14.6 % (11.8-14.1)
[2022-04-17 08:44] LABS: ALT 33 U/L (16-63); AST 14 U/L (15-37); Albumin 3.3 g/dL (3.4-5.0); Alkaline Phosphatase 91 U/L (46-116); Anion Gap 8.4 mmol/L (3-11); BUN 10 mg/dL (7-18); Bilirubin, Total 0.6 mg/dL (0.2-1.0); CO2 26.6 mmol/L (21.0-32.0); CREATININE 1.1 mg/dL (0.70-1.30); Calcium 8.8 mg/dL (8.5-10.1); Calculated LDL 83 mg/dL (<100); Chloride 103 mmol/L (98-107); Cholesterol 154 mg/dL (<200); Estimated GFR 79.77 (mL/min/1.73m2); Glucose 95 mg/dL (74-106); HDL Cholesterol 40 mg/dL (40-60); Potassium 4.2 mmol/L (3.5-5.1); Sodium 138 mmol/L (136-145); Total Protein 7.7 g/dL (6.4-8.2); Triglyceride 158 mg/dL (<150)
[2022-04-18 09:44] LABS: Hepatitis C Ab w Rflx HCV PCR Negative (Negative)
[2022-04-18 09:54] LABS: HIV-1/2 Ag & Ab Screen Negative (Negative)
== END 2022-04-17 04:14 | disposition home or self-care (01) ==
LOC: LBO 04:13
PROVIDERS: PCP Nurse Practitioner; Visit Provider Nurse Practitioner
DX: R73.03 Prediabetes (principal); E66.9 Obesity, unspecified; Z11.59 Encounter for screening for other viral diseases; Z11.4 Encounter for screening for human immunodeficiency virus [HIV]
CPT/HCPCS: 36415; 80053; 80061; 85027; 86803; 87389

== ENCOUNTER 2022-06-10 09:16 | Outpatient (CLI) | payer OTHER, SELFPAY ==
--- NOTE | 2022-06-10 08:15 | DI.RAD_ITS ---
Exam(s) XR STANDING ALIGNMENT EXAM: XR STANDING ALIGNMENT CLINICAL HISTORY: L knee pain. TECHNIQUE: 2D digital imaging was performed. Standing AP views were performed from the pelvis throu gh the ankles. COMPARISON: No exams were available for comparison FINDINGS: BONES: No acute fracture is present. No bony destructive lesion is seen. Leg length discrepancy: Left femoral head projects 8 millimeters superior to the right. JOINTS: Knees: Narrowing of both medial femoral tibial joint spaces and periarticular spurring, great er on the left. The ankle joints are unremarkable. The hip joints show mild bilateral narrowing. SOFT TISSUE: Normal. IMPRESSION: Degenerative changes of both knees, left greater than right.. Mild overall leg length discrepancy. DATA REPOSITORY: RADIATION DOSE DELIVERED:
--- NOTE | 2022-06-10 08:15 | DI.RAD_ITS ---
Exam(s) XR KNEE LT 2V AP,LAT EXAM: XR KNEE LT 2V AP,LAT CLINICAL HISTORY: L knee pain. TECHNIQUE: 2D digital imaging was performed. Three views. COMPARISON: CR XR KNEE 4 VIEW RIGHT from 12/25/2021 MR MR LOWER JOINT RT WO from 02/15/2022 FINDINGS: BONES: No acute fracture is present. No bony destructive lesion is seen. JOINTS: There is mild narrowing of the femoral tibial joint space, mild greater laterally. There is mild periarticular spurring throughout the knee is normally aligned. No joint effusion is seen. SOFT TISSUE: Normal. IMPRESSION: [id number] degenerative changes. DATA REPOSITORY: RADIATION DOSE DELIVERED:
== END 2022-06-10 09:17 | disposition home or self-care (01) ==
LOC: DIORS 09:16
PROVIDERS: PCP Nurse Practitioner; Referring Provider Nurse Practitioner; Visit Provider Physician Assistant
DX: M25.562 Pain in left knee (principal); M17.12 Unilateral primary osteoarthritis, left knee; M21.70 Unequal limb length (acquired), unspecified site
CPT/HCPCS: 73560; 77073

== ENCOUNTER 2022-07-18 01:40 | Outpatient (CLI) | payer OTHER, SELFPAY ==
[2022-07-18 15:08] LABS: HCT 46.2 % (40.0-50.0); MCH 27.2 pg (27.0-33.0); MCHC 32.5 % (32.0-36.0); MCV 84 fL (80-95); MPV 10.1 fL (8.0-11.0); Platelet Count 271 10^3/uL (130-400); RBC 5.51 10^6/uL (4.36-5.78); RDW 14.7 % (11.8-14.1); RDW-SD 44.9 fL; WBC 11.55 10^3/uL (4.4-10.8)
[2022-07-18 15:57] LABS: Anion Gap 7.5 mmol/L (3-11); BUN 12 mg/dL (7-18); CO2 28.5 mmol/L (21.0-32.0); CREATININE 1.1 mg/dL (0.70-1.30); Calcium 9.1 mg/dL (8.5-10.1); Chloride 101 mmol/L (98-107); Estimated GFR 79.77 (mL/min/1.73m2); Glucose 89 mg/dL (74-106); Potassium 3.8 mmol/L (3.5-5.1); Sodium 137 mmol/L (136-145)
== END 2022-07-18 01:41 | disposition home or self-care (01) ==
LOC: LBO 01:40
PROVIDERS: PCP Nurse Practitioner; Visit Provider Student in an Organized Health Care Education/Training Program
DX: M17.12 Unilateral primary osteoarthritis, left knee (principal); Z01.818 Encounter for other preprocedural examination
CPT/HCPCS: 36415; 80048; 85027

== ENCOUNTER 2022-07-23 08:22 | Day surgery (SDC) | payer OTHER, SELFPAY ==
[2022-07-23] VITALS (13 sets, daily range): BP systolic 99–171; BP diastolic 61–114; PULSE 61–72; RESP 11–22; TEMP 35.9–36.6; O2SAT 95–98; BMI 46.1
[2022-07-23] MEDS: Acetaminophen 500 MG TAB 1000 MG PO (09:49)
[2022-07-23] MEDS: Celecoxib 200 MG CAP 400 MG PO (09:49)
[2022-07-23] MEDS: Gabapentin 300 MG CAP PO (09:49)
[2022-07-23] MEDS: Lactated Ringers 1,000 ML 80 ML IV (10:10)
--- NOTE | 2022-07-23 10:14 | W.ANESPRE ---
General Info Date of Service Date Performed: 07/23/22 Height: 6 ft Weight: 154.3 kg Body Mass Index (BMI): 46.1 Surgical Procedure: Operation Date: 07/23/22 12:40 Proposed Procedure Side Surgeon p Knee Total Arthroplasty, Cementless FB/CR Left Tony Barrett MD Meds Allergies and Home Medications Allergies Allergy/AdvReac Type Severity Reaction Status Date / Time Penicillins Allergy Intermediate Hives Verified 07/23/22 09:37 cyclobenzaprine HCl AdvReac Intermediate sleepiness Verified 07/23/22 09:37 [From Flexeril] Home Medication Medication Instructions Recorded acyclovir 400 mg tablet 400 mg PO HS #90 tabs 06/10/22 bisoprolol fumarate 10 mg tablet 10 mg PO HS #90 tabs 06/10/22 trazodone 50 mg tablet 50 mg PO HS #90 tabs 06/10/22 omeprazole magnesium 20 mg 20 mg PO PRN 07/23/22 tablet,delayed release (Prilosec OTC) Current Visit Medications: Current Medications Generic Name Dose Route Start Last Admin Trade Name Freq PRN Reason Stop Dose Admin Acetaminophen 1,000 mg 07/23/22 06:00 07/23/22 09:49 Acetaminophen 500 Mg Tab PO 07/23/22 16:00 1,000 mg PREOP SHARATH Administration Acetaminophen 1,000 mg 07/23/22 08:30 Acetaminophen 500 Mg Tab PO TID SHARATH Aspirin 81 mg 07/23/22 08:30 Aspirin E.C. 81 Mg Tabec PO BID SHARATH Celecoxib 400 mg 07/23/22 06:00 07/23/22 09:49 Celecoxib 200 Mg Cap PO 07/23/22 16:00 400 mg PREOP SHARATH Administration Celecoxib 200 mg 07/23/22 08:30 Celecoxib 200 Mg Cap PO BID SHARATH Dexamethasone 4 mg 07/23/22 08:30 Dexamethasone 4 Mg Tab PO 07/24/22 08:31 DAILY SHARATH Docusate Sodium 100 mg 07/23/22 07:32 Docusate Sodium 100 Mg Cap PO BID PRN PRN Constipation Gabapentin 300 mg 07/23/22 06:00 07/23/22 09:49 Gabapentin 300 Mg Cap PO 07/23/22 16:00 300 mg PREOP SHARATH Administration Gabapentin 300 mg 07/23/22 22:00 Gabapentin 300 Mg Cap PO HS SHARATH Hydromorphone HCl 0.5 mg 07/23/22 07:32 Hydromorphone 2 Mg/Ml Syr IVP Q2H PRN PRN Tranexamic Acid 1,000 mg/ 60 mls @ 360 mls/hr 07/23/22 06:00 Sodium Chloride IVPB 07/23/22 16:00 PREOP SHARATH Cefazolin Sodium 3,000 mg/ 100 mls @ 200 mls/hr 07/23/22 06:00 Sodium Chloride IVPB 07/23/22 16:00 PREOP SHARATH Ringer's Solution 1,000 mls @ 80 mls/hr 07/23/22 06:00 IV 08/21/22 23:59 INFUSION SHARATH Cefazolin Sodium/Dextrose 1 gm in 50 mls @ 100 mls/hr 07/23/22 08:00 Ancef Duplex IVPB 07/24/22 00:29 Q8H SHARATH IV Miscellaneous Supplies 1 each 07/23/22 06:00 Iv Access IV 08/21/22 23:59 DIRECTED SHARATH Oxycodone HCl 0 mg 07/23/22 07:32 Oxycodone 5 Mg Tab PO Q3H PRN PRN Pain Pantoprazole Sodium 40 mg 07/24/22 07:30 Pantoprazole 40 Mg Tabcr PO DAILY@0730 SHARATH Polyethylene Glycol 17 gm 07/23/22 07:32 Polyethylene Glycol 3350 17 Gm Packet PO BID PRN PRN Constipation Sodium Chloride 0 ml 07/23/22 06:00 Normal Saline Flush 10 Ml Syr IV 08/21/22 23:59 PRN PRN Sodium Chloride 0 ml 07/23/22 06:00 Normal Saline 10 Ml Vial IJ 08/21/22 23:59 DIRECTED PRN Sterile Water 0 ml 07/23/22 06:00 Water,Injection,Sterile 10 Ml Vial IJ 08/21/22 23:59 DIRECTED PRN PFSH Active Problems Active Problems: Problem Status Onset Code Primary osteoarthritis of right knee M17.11 Sebaceous cyst L72.3 Lipoma D17.9 Pre-diabetes R73.03 Right knee pain M25.561 Acrochordon L91.8 Essential hypertension 12/03/16 I10 Screening for viral disease Z11.59 Family history of diabetes mellitus 01/16/12 Z83.3 Primary osteoarthritis of left knee M17.12 Family hx of colon cancer Z80.0 Herpes simplex with unspecified complication 09/07/12 B00.89 Reflux esophagitis ~04/10/20 K21.00 Sleep apnea 02/16/13 G47.30 Body mass index (BMI) greater than 40 Dysphagia R13.10 Medical History Medical History Adenoma of large intestine (12/07/12) 11/2012, Susan Zavala Repeat colonoscopy in 3 years Adult BMI > 30 (12/13/15) Anal fissure (10/08/12) Carpal tunnel syndrome on both sides (07/22/16) Cervicalgia (01/16/12) Colon polyp Family hx of prostate cancer (01/16/12) Step brother (same mother) H. pylori infection (05/18/14) 05/2014 Heartburn Heartburn (02/16/13) 10-YEARS, USING OTC OMEPRAZOLE Hemorrhoids Hemorrhoids, internal (11/21/15) Hypertriglyceridemia (12/27/15) Internal derangement of left knee Obesity Obstructive sleep apnea syndrome Medical History Comments:: pt. reports once he had a difficult time waking up and his eyes were red Surgical History Surgical History Endoscopic Carpal Tunnel release (06/19/16) right S/P lateral meniscectomy of left knee sp arthroscopic partial left lateral meniscectomy and limited synovectomy 10/21/18 Tobacco Smoking/Tobacco Use Status: Never Second hand exposure: No Alcohol Alcohol Intake: current Alcohol intake frequency: holidays/special occasions only Substance Use Substance use: Daily Substance use type: marijuana Details: marijuana t-2(Smokes daily) a bowl Vital Signs and Lab Results Vital Signs Most Recent Vital Signs in EMR: Most Recent Vital Signs Temp Pulse Resp BP Pulse Ox 36.2 C L 66 18 124/93 H 98 07/23/22 09:41 07/23/22 09:41 07/23/22 09:41 07/23/22 09:41 07/23/22 09:41 Lab Results Blood Type / Crossmatch: No Data to Display Complete Blood Count: White Blood Count 11.55 10^3/uL (4.4-10.8) H 07/18/22 15:00 Red Blood Count 5.51 10^6/uL (4.36-5.78) 07/18/22 15:00 Hemoglobin 15.0 g/dL (13.5-17.5) 07/18/22 15:00 Hematocrit 46.2 % (40.0-50.0) 07/18/22 15:00 Platelet Count 271 10^3/uL (130-400) 07/18/22 15:00 Complete Metabolic Panel: Sodium 137 mmol/L (136-145) 07/18/22 15:00 Potassium 3.8 mmol/L (3.5-5.1) 07/18/22 15:00 Chloride 101 mmol/L (98-107) 07/18/22 15:00 Carbon Dioxide 28.5 mmol/L (21.0-32.0) 07/18/22 15:00 BUN 12 mg/dL (7-18) 07/18/22 15:00 Creatinine 1.1 mg/dL (0.70-1.30) 07/18/22 15:00 Est GFR (CKD-EPI 2020) 79.77 (mL/min/1.73m2) 07/18/22 15:00 Calcium 9.1 mg/dL (8.5-10.1) 07/18/22 15:00 Glucose 89 mg/dL (74-106) 07/18/22 15:00 Liver Function Panel: No Data to Display Coagulation Panel: No Data to Display Cardiac Panel: No Data to Display Arterial Blood Gas: No Data to Display Venous Blood Gas: No Data to Display Pancreas Panel: No Data to Display Thyroid Panel: No Data to Display Infectious Disease: No Data to Display Blood Cultures: No Data to Display Toxicology Panel: No Data to Display Anesthesia Assessment and Plan Anesthesia History Personal History: No History of Anesthesia Complications Family History: No Family History of Anesthesia Complications Exercise Tolerance Exercise Tolerance: Metabolic Equivalents>4 Pertinent Negatives Pertinent Negatives: No Symptoms of GERD, No Major Cardiovascular Symptoms or Complaints and No Major Pulmonary Symptoms or Complaints Cardiac & Pulmonary Exam Cardiac Exam: Normal S1/S2 Heart Sounds Pulmonary Exam: Clear Bilateral Breath Sounds Implantable Cardiac Device Does patient have a Pacemaker or an ICD?: No Airway Exam Known Difficult Airway: No Mallampati Class: 2 Mouth Opening: Normal (> 3cm) Thyromental Distance: Greater than 3 cm Neck Range of Motion: Full ROM Neck Circumference: Normal Teeth Condition: Normal Dentition ASA Classification ASA Score: ASA 3 Emergency Case?: No NPO Status NPO Status: NPO Clears >2 hours, Solids >8 hours Anesthesia Plan Resuscitation Status: Full Code Anesthesia Technique: General Anesthesia Airway Planned: Natural Airway Pain Management: Surgeon and patient request nerve block Monitors Used: Standard Monitors
--- NOTE | 2022-07-23 10:38 | ANES.NERVE_ITS ---
Nerve Block Single Injection Procedure Date and Time Date Performed: 07/23/22 Procedure Start: 10:32 Location Where Procedure Performed Procedure Location: Day Surgery Unit Reason Performed: Postoperative Analgesia Requesting Provider: Tony Barrett Timeout Performed Timeout Performed: Yes Monitoring Used ECG, Blood Pressure, SpO2 and See EMR for corresponding vital signs Sterility Sterility: Hand Hygiene, Surgical Cap, Surgical Mask and Sterile Gloves Sedation Given During Procedure Sedation Given (Indicate Dose Given): No Sedation given Patient Mental Status Patient Mental Status: Awake Nerve Block 1st Nerve Block: Laterality: Left Block Type: Adductor Canal Needle / Catheter Used: 100mm SonoPlex II Local Anesthetic Bolus (Indicate Dose Given): Lidocaine used for local inf iltration of skin, Injected in 3-5ml increments after negative blood aspiration and Bupivacaine 0.25% Dose:: 10mL Additives (Indicate Dose Given): None Ultrasound: Sterile probe cover and gel used Ultrasound Image Saved?: Yes Nerve Stimulator: Not Used Paresthesia: None Procedure Tolerated: No Complications Procedure Outcome: Successful Performed By: Beatriz Bright
[2022-07-23] MEDS: ceFAZolin 3,000 MG in Normal Saline 100 ML 200 MG IVPB (11:38)
--- NOTE | 2022-07-23 13:34 | ROE_ITS ---
Date of service: 07/23/22 Time of Service: 13:34 Operative Note Operative Note DATE OF PROCEDURE: 07/23/22 PRE-OP DIAGNOSIS: Left Knee Osteoarthritis POST-OP DIAGNOSIS: same PROCEDURE: Left Total Knee Replacement with Intraoperative Navigation SURGEON: Tony Barrett TRUCK TRAILER MECHANIC: Winnie Neil ANESTHESIA TYPE: General LMA/ETT and Spinal Refer to Anesthesia Record ESTIMATED BLOOD LOSS: 250 PATHOLOGY: none sent TOURNIQUET TIME: 0 COMPLICATIONS: None Patient was transported to: PACU Patient's condition: stable Implants: 1. Depuy Attune Cementless Cruciate Retaining Femoral Component, Size 7 2. Depuy Attune Cementless Fixed Platform Tibial Component, Size 6 3. Depuy Attune 7x7 CR/FP Poly Indications: I have seen Kofi in clinic for symptoms of LEFT knee arthritis, confirmed with radiographic findings. Kofi has exhausted nonoperative methods and was having significant limitations in daily function and desired better function and less pain. I discussed the technical details of a knee replacement. I explained the risks of the procedure to include, but not limited to, bleeding, infection, pain, stiffness, fracture, damage to nerves and vessels, damage to muscles and tendons, loosening, need for repeat procedure, blood clot and cardiopulmonary demise. Despite these risks, Kofi elected to proceed. Findings: There was significant signs of arthritis throughout the knee in both medial and lateral compartments. Procedure Description: Kofi was greeted in the preoperative holding area where the correct side was identified and marked. The consent was reviewed with the patient and signed. The history and physical was updated. All questions were answered. Preoperative mediacations were administered: Acetaminophen 1000mg, Celebrex 400m g, and Gabapentin 300mg. An adductor canal block was then administered by the anesthesia team in the PACU. Kofi was taken back to the operating room. A spinal anesthestic was then administered. The patient was placed into the supine position on the operating room table. A nonsterile tourniquet was placed high onto the leg. Posts were placed for positioning during the procedure. All bony prominences were well padded. Prophylactic antibiotics in the form of Cefazolin were administered. 1g of Tranxemic Acid was given intravenously within 30 minutes of incision. The left leg was then prepped with Chloraprep and draped in a standard fashion with impervious stockinette. A second prep with Chloraprep was performed prior to application of Iodine impregnated skin protection. A timeout to confirm correct identity, side and site, procedure, allergies, anesthesia, and medical concerns was performed. With the knee in some flexion, a midline incision was made overlying the knee. Full thickness skin flaps were raised once the extensor mechanism was encountered. These were raised medially and laterally. Any bleeding was controlled with electrocautery. Once the extensor mechanism was fully exposed, a medial parapatellar arthrotomy was performed in a flexed position. All bleeding from the arthrotomy and the geniculate arteries was coagulated. A medial subperiosteal peel was performed with electrocautery to the midcoronal plane. The fat pad was removed while keeping the patellar tendon protected. The anterior distal femur synovium was removed for later visualization. The ACL and PCL were resected and the anterior horn of the lateral meniscus was transected. The knee was then flexed with the patella everted. Large osteophytes from the tibia were removed. A single starting pin was then placed 1cm anterior to the PCL insertion and the notch in the direction of the femoral head. The OrthoAlign device was applied over the pin. It was oriented to be in line with the epicondylar axis and the trochlear groove. It was then pinned into place. The navigation computer was then turned on and calibrated. The distal femur cut was set at 0 degrees varus/valgus and 2.5 degrees flexion. The distal femur cutting guide then was positioned for a 9mm cut. The distal femur was cut with an oscillating saw while protecting the soft tissues. The tibia was then addressed. The OrthoAlign device was placed over the tibial tubercle and medial tibia and secured into position. Once again, OrthoAlign was calibrated and then set for a 3 degree varus cut and 5 degrees of posterior slope. With this locked into position, the cut thickness stylus was used to assess cut thickness. The lateral side was set for a 6mm cut which corresonded to 7mm laterally since both had some wear. This was then held in position and pinned into place with 2 additional pins and a cross pin for stability. The medial and lateral collateral ligaments were protected and the cut was p erformed. With this completed, it was assessed and noted to be of appropriate dimensions. The guide and OrthoAlign was removed. A spacer block was inserted and the knee was brought into extension. The 6mm spacer block provided full extension, without hyperextension and with stability of both the medial and lateral collateral ligaments was assessed. The pins from the femur and the tibia were then removed. The distal femur was then sized. The anterior stylus was placed onto the lateral ridge of the anterior femur. This indicated a size 7 femur. The Ortholign navigation device was then used for gap balancing. The device was placed in extension which showed a medial gap of 18 mm and a lateral gap of 20 mm. The knee was then brought into 90 degrees of flexion and the certified travel counselor was used to establish the flexion gap. Similarly there was a 2 mm difference between medial and lateral. The posterior cut was set to 10 mm and pins were placed. The 4-in-1 cutting guide was the placed. The spacer block was inserted underneath the cutting guide and stability was confirmed in 90 degrees of flexion. An thais wing was used to confirm appropriate position of the anterior cut to avoid notching. This cutting guide was ensured to be flush on the cut surface and then pinned into place with headed pins. While protecting the soft tissues, quad tendon, and collateral ligaments, the anterior and posterior cuts were performed with a saw. The central two pins were removed and the posterior and anterior chamfers were cut next. This point in the case Kofi was having some difficulty maintaining his airway without obstructing with sedation and was having some sensations of pain and therefore he was converted to a general anesthetic. The notch-cutting guide was placed. This was pinned to lateralize the femoral component as much as possible while keeping it flush on the cut surface. This was then pinned into position. A reciprocating saw was used to make the notch cut. A rasp smoothed the cut surfaces. The medial and lateral menisci were removed. A trial femoral component was then inserted, impacted down to the cut surfaces, and the lug holes were drilled. A provisional trial tibial component was placed and the knee was brought through range of motion. The polyethylene was trialed until there was good flexion and extension with excellent stability to the medial and lateral collaterals. The patella was tracking without thumbs. A size 7mm polyethylene component provided the best range of motion and stability with less than 2mm gapping with medial and lateral stress and full extension without significant hyperextension. The tibial cut surface was fully exposed. The tibia was then sized as a 6. The tibia had been previously marked during trialing to correspond to the center of the tibial component to help with rotation. The trial was aligned to this anushka, approximately rotated to the medial 1/3rd of the tibial tubercle. The trial was pinned into place. The tibia was prepared with a reamer and a keel punch and lug holes. The knee was brought into extension and the patella was more fully evaluated. There was some very mild wear over the central portion of the patella. However, there is still substantial thickness of cartilage about the patella. Therefore without a clear defect of the patellar cartilage surface this was left and not resurfaced. The periphery of the patella was removed of synovium and denervated with electrocautery. The trial components were removed. The final components were opened on the back table. The periosteal and capsular tissues, especially posteriorly, around the knee were then systematically injected with a periarticular cocktail consisting of 246mg of Ropivacaine, 0.5mg of Epinephrine, 0.08mg of Clonidine, and 30mg of Ketorolac, diluted to 100cc. The cementless knee components were placed. Starting with the tibial component, the tibia was subluxed anteriorly and the lug holes of the component were lined up. The tibia was then impacted with an impactor and mallet until the tibial component was in contact with the tibia. The final polyethylene component was inserted and impacted. Then, the femoral component was inserted. The lug holes were aligned and the component was impacted into position. The knee was irrigated with Surgiphor Betadine solution. This was allowed to sit in the knee for 3 minutes and then it was thoroughly irrigated out with saline. The capsule was then reapproximated with a No. 1 Vicryl at multiple locations. The capsule was finally closed with a No. 2 Stratafix, barbed suture. Deep tissues were then reapproximated with 0 Vicryl and 2-0 Vicryl. The skin was closed with a running 3-0 Monocryl in a subcuticular fashion. This was reinforced with skin glue. A Mepilex silver dressing was applied along with a [id number] DAY wrap. A CryoCuff was applied. Kofi was transferred to the hospital bed without difficulty an suffering no apparent complication. Kofi has a good prognosis. Physical therapy will start today and without restrictions, weight-bearing as tolerated. Aspirin 81mg BID will be used for DVT prophylaxis.
--- NOTE | 2022-07-23 14:14 | DSE_ITS ---
Date of service: 07/23/22 Time of Service: 14:20 DS: Diagnosis Discharge Diagnosis (1) Primary osteoarthritis of left knee: Status: Chronic Discharge Plan Disposition Patient Disposition: Home Discharge Details Reason For Visit: Left knee DJD Attending Provider: Tony Barrett Primary Care Provider: Yael Almaguer Home Meds and New Rx's Prescriptions: New celecoxib [Celebrex] 200 mg capsule 200 mg PO BID Qty: 30 0RF aspirin 81 mg tablet,delayed release (DR/EC) 81 mg PO BID 30 Days Qty: 60 0RF acetaminophen 500 mg tablet 500 mg PO Q6H PRN (Reason: pain) Qty: 60 2RF dexamethasone 4 mg tablet 4 mg PO DAILY Qty: 2 0RF Rx Instructions: Take one tablet once daily for two days docusate sodium [Colace] 100 mg capsule 100 mg PO BID Qty: 30 0RF gabapentin 300 mg capsule 300 mg PO QHS Qty: 14 0RF Rx Instructions: Take one tablet at bedtime oxycodone 5 mg tablet 5 mg PO Q4H PRN (Reason: severe post-operative pain) Qty: 18 0RF Rx Instructions: Take one tablet up to every 4 hours as needed for severe pain Continued acyclovir 400 mg tablet 400 mg PO HS Qty: 90 3RF Rx Instructions: dx: suppression therapy bisoprolol fumarate 10 mg tablet 10 mg PO HS Qty: 90 3RF trazodone 50 mg tablet 50 mg PO HS Qty: 90 3RF omeprazole magnesium [Prilosec OTC] 20 mg Tablet,Delayed Release (Dr/Ec) 20 mg PO PRN Discharge Instructions Additional Instructions: Total Knee Discharge Instructions Activity: The most important activity is to walk and to work on gentle motion (both flexion and extension). You should try to take short walks a few times a day. It is important that when resting you work on keeping the knee straight. Avoid putting a pillow behind the knee as this will encourage flexion. Work on range of motion exercises as provided by Physical Therapy. - Start outpatient physical therapy within 2 weeks. - You should wear the GERARDO hose on both legs for 2 weeks. You may remove these at night. You may also use any compression sock in place of the GERARDO hose. - Utilize [employer] to review exercises, see videos on exercises and obtain basic information pertaining to your surgery and your recovery. Dressing: Remove the Thai wrap by 2 days after your surgery and put on the GERARDO stocking given to you from the hospital. Keep the surgical dressing (underneath the THAI wrap) in place for at least one week. After the first week it may be removed and replaced with light gauze and tape or nothing. The wound and dressing may get wet after 3 days but avoid soaking the dressing or otherwise it will need to be changed. Many people prefer covering the dressing with cling wrap (saran wrap) to minimize it from getting soaked. If it gets wet, just pat dry. If it starts to peel off then it will need to be changed. Medications: - You should take Tylenol and anti-inflammatory Celebrex as your primary pain control medications. If the Celebrex is too expensive or not covered, please call the office for another alternative (Advil/Ibuprofen or Naproxen/Aleve) - You have been prescribed a stronger pain medication Oxycodone for breakthrough pain, take as needed as prescribed. - You have also been prescribed a stomach acid reduction agent Pantoprozole to help reduce stomach acid and reflux. - You have been prescribed Gabapentin to take at night for restlessness and nerve pain. - You will be taking Aspirin 81mg twice a day for DVT prevention unless instructed otherwise. - You have also been prescribed Decadron to take to control post-operative nausea and pain. You will start this tomorrow. - If you have constipation you should take Colace (which has been prescribed) or Miralax (which is available [id number]). It takes most people 3-4 days to have a bowel movement. Follow-up: 2 weeks If you have any acute concerns or questions, please do not hesitate to contact the office at [phone]. You may contact Dr. Barrett with any questions after hours through the hospital at [phone] or on his cell phone at [phone]. Referrals: Tony Barrett MD [ [facility] STAFF PHYSICIAN] - Equipment/Supplies: Walker Activity:: Elevate Remove Dressings/Wound Care:: Do Not Remove Shower/Bathe:: Cover Diet:: As Tolerated DS: Summary Time Spent with Patient providing and/or coordinating discharge services: Less than 30 minutes Status at Discharge Functional status at discharge: uses cane/walker Overall status at discharge: patient is progressing back to baseline Mental Status: mental status grossly normal Speech and Movement: speech and movement normal Mood: congruent mood Affect: normal affect Exam Psych Mental Status: mental status grossly normal Speech and Movement: speech and movement normal Mood: congruent mood Affect: normal affect DS: Data Vitals/I&O Vitals and I&O: Vital Signs Temperature 97.9 F 07/23/22 10:25 Temperature Source Skin 07/23/22 10:25 Pulse 66 07/23/22 10:25 Pulse Rhythm Regular 07/23/22 09:41 Respiratory Rate 07/23/22 10:25 Respiratory Depth Normal 07/23/22 09:41 Blood Pressure 125/96 H 07/23/22 10:25 Blood Pressure Mean 105 07/23/22 10:25 Pulse Oximetry 96 07/23/22 10:25 Oxygen Delivery Method Room Air 07/23/22 10:25 Oxygen Flow Rate 0 07/23/22 10:25 Pain Level 0 07/23/22 10:25 Comment 07/23/22 10:25 Intake & Output 07/22/22 07/23/22 07/23/22 23:59 11:59 23:59 Intake Total 100 / 760 660 / 760 Output Total 250 / 250 Balance 100 / 510 410 / 510 Weight 340 lb 2.772 oz Intake: IV 100 / 760 660 / 760 Output: Estimated Blood Loss 250 / 250 [facility] All Active Problems Primary osteoarthritis of right knee (Acute) Sebaceous cyst (Acute) Lipoma (Acute) Pre-diabetes (Acute) Right knee pain (Acute) 12/25/21-[facility]; imaging done there. most likely due to a meniscus tear, referred to [facility] for an MRI(per note dated 12/25/21) Acrochordon (Acute) Essential hypertension (Acute 12/03/16) Screening for viral disease (Acute) Family history of diabetes mellitus (Acute 01/16/12) Step-brother (same mother) Primary osteoarthritis of left knee (Chronic) Dr. Lawton Family hx of colon cancer (Chronic) father, pt colo 02/2016 Herpes simplex with unspecified complication (Chronic 09/07/12) CULTURED 08/2012, +HSV and started on suppressive therapy Reflux esophagitis (Chronic ~04/10/20) on EGD Sleep apnea (Chronic 02/16/13) Pt refuses CPAP because he cannot sleep on his back Body mass index (BMI) greater than 40 (Acute) Dysphagia (Acute) Medical History Adenoma of large intestine (12/07/12) 11/2012, Susan Zavala Repeat colonoscopy in 3 years Adult BMI > 30 (12/13/15) Anal fissure (10/08/12) Carpal tunnel syndrome on both sides (07/22/16) Cervicalgia (01/16/12) Colon polyp Family hx of prostate cancer (01/16/12) Step brother (same mother) H. pylori infection (05/18/14) 05/2014 Heartburn Heartburn (02/16/13) 10-YEARS, USING OTC OMEPRAZOLE Hemorrhoids Hemorrhoids, internal (11/21/15) Hypertriglyceridemia (12/27/15) Internal derangement of left knee Obesity Obstructive sleep apnea syndrome Surgical History Endoscopic Carpal Tunnel release (06/19/16) right S/P lateral meniscectomy of left knee sp arthroscopic partial left lateral meniscectomy and limited synovectomy 10/21/18 Family History Other Hypertensive disorder, systemic arterial Diabetes Brother , Colon CA at age 52. Personal history of malignant neoplasm colon cancer age 52 Father , ?? Heart disease Other Family hx of prostate cancer Social History (Updated 04/09/22 @ 09:06 by Evelyn Crum LPN) Smoking/Tobacco Use Status: Never Second Hand Exposure: No Smoking risk assessment performed?: Yes Alcohol Intake: current Alcohol Intake frequency: holidays/special occasions only Drug use: Daily Substance use type: marijuana Details: marijuana t-2(Smokes daily) a bowl Caregiver/Support person: No Household members: spouse and other Details: lives w/ GF and 2 others to total 4 Housing: house Number of Children: 0 Communication Needs: None Do you need help understanding health information?: Never 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[employer] Pets and animals: No Sexually active: Yes Do you think of yourself as: straight/heterosexual Current gender identity: male What is your relationship status?: How often do you talk on the phone with friends or family?: three or more times per week How often do you get together with friends or relatives?: twice per week How often do you attend voodoo or taoist services?: decline to answer Do you belong to any clubs or organized social groups?: no Panel score (0-1 are the most socially isolated patients): 2 What type of physical activity do you participate in: none Seatbelt use: never Drive intox or ride w/intox school bus driver/mechanic: No Working smoke detector in home: Yes Fire extinguisher in home: Yes Carbon monox detector in home: Yes Firearms in home: No Do you feel safe at home: Yes Do you feel safe in your relationship?: Yes
[2022-07-23] MEDS: Normal Saline 10 ML VIAL IJ (14:25)
[2022-07-23] MEDS: HYDROmorphone 2 MG/ML SYR IVP ×3 (14:25→14:51)
[2022-07-23] MEDS: diazePAM 10 MG/2 ML SYR 5 MG IVP (15:07)
[2022-07-23] MEDS: oxyCODONE 5 MG TAB PO ×2 (15:47→16:55)
--- NOTE | 2022-07-23 16:25 | PT.INIE ---
Date of service: 07/23/22 Time of Service: 16:25 PT Notes Visit Reasons: Left knee DJD Physical Therapy Day Surgery Initial Evaluation Date: 07/23/2022 Referring Doctor: FATIMAH Wise PT Orders: PT CONSULT: S/p Ortho surgery Precautions: WBAT on left LE with AD. Patient Profile/Admitting Diagnosis: Kofi is a 56-year-old male with degenerative joint disease of the left knee and status post left total knee arthroplasty on postoperative day 0. PMHX: Medical History?(Updated 06/10/22 @ 08:44 by FATIMAH Mitchell) Adenoma of large intestine (12/07/12) 11/2012, Susan Zavala Repeat colonoscopy in 3 years Adult BMI > 30 (12/13/15) Anal fissure (10/08/12) Carpal tunnel syndrome on both sides (07/22/16) Cervicalgia (01/16/12) Colon polyp Family hx of prostate cancer (01/16/12) Step brother (same mother) H. pylori infection (05/18/14) 05/2014 Heartburn Heartburn (02/16/13) 10-YEARS, USING OTC OMEPRAZOLE Hemorrhoids Hemorrhoids, internal (11/21/15) Hypertriglyceridemia (12/27/15) Internal derangement of left knee Obesity Obstructive sleep apnea syndrome Surgical History? Endoscopic Carpal Tunnel release (06/19/16) right S/P lateral meniscectomy of left knee sp arthroscopic partial left lateral meniscectomy and limited synovectomy 10/21/18 Social History/Home Situation: Lives with Brittni in a private ranch time home with 3 steps to enter with a rail on the right side going up. Independent with all aspects of ADLs prior to surgery. Equipment Owned/DME: Bilateral axillary crutches, FWW Subjective: Reports 4-5/10 pain in the inner side left knee at rest and up to 7/10 pain with ambulation. Denies headache, chest pain, and lightheadedness throughout session. Objective: General Observation: Supine in stretcher. Thai wraps to left LE. Cryocuff to left knee. My BMI Mental Status: Alert and oriented x4 Pain: 4-5/10 in the medial left knee at rest, 6-7/10 with ambulation ROM: Right Lower Extremity: Hip flexion WFL. Hip abduction WFL. Knee flexion WFL. Ankle dorsiflexion WFL. Ankle plantarflexion WFL. Left Lower Extremity: Able to tolerate 5 reps of straight leg raise to 45 degrees before onset of moderate pain in the left knee. Hip flexion allows up to 80 degrees. Hip abduction WFL. Knee flexion 45 degrees to 80 degrees before onset of moderate pain. Knee extension -45 degrees ankle dorsiflexion WFL. Ankle plantarflexion WFL. Strength: Right Lower Extremity: Hip flexors 5/5. Hip abductors 5/5. Knee flexors 5/5. Knee extensors 5/5. Ankle dorsiflexors 5/5. Ankle plantarflexors 5/5. Left Lower Extremity: Hip flexors 3-/5. Hip abductors 4-/5. Knee flexors 3-/5. Knee extensors 3-/5. Ankle dorsiflexors 4-/5. Ankle plantarflexors 4-/5. Sensation: Intact as to pain and light pressure in bilateral lower extremities THERA EX: SLR to 45 degrees only x 5 Quadriceps sets x 2 with report of moderate pain in the left knee Heel slides x 5 Ankle pumps x 10 LAQ x 5 Bed Mobility/Transfers: Supine to sit standby assist Sit to stand standby assist with FWW Stand to sit standby assist with FWW Gait: Altered level surface ambulation of about 100 feet using front wheeled walker with step to gait pattern with report of increased pain up to 7/10 custodial through the walk. No shortness of breath. No loss of balance. Stairs: Up and down 6 x 4 inch steps and 4 x 6 inch steps while holding onto 1 rail with 1 hand and using a unilateral crutch on the other side requiring contact-guard assist for safety with step to gait pattern and increase in pain report to about 7/10 pain in the medial L knee. Balance: Static Sitting: Good Dynamic Sitting: Good Static Standing: Fair Dynamic Standing: Fair Special Tests: Mobility Limitations Standardized Measure [facility] AM-PAC 6 clicks Basic Mobility Inpatient Short Form: Raw Score: 23 CMS Score: 11% deficit Informed Consent/Education: Patient instructed in purpose of PT consult. Packet containing TKA exercise protocol has been given to patient. Education and training on initial set of exercises that can be done at home have been completed with patient. Assessment: Bill requires use of a front wheeled walker for all mobility ADL performance in order to maximize independence and reduce fall risk. Patient presents with clinical signs and symptoms consistent with current/admitting diagnoses that have resulted to mobility limitations, gait instability, generalized weakness, and impairment of motor control as demonstrated by the following impairment level findings: 1. Decreased strength to left knee major muscle groups 2. Impaired standing balance 3. Limitation of joint range of motion in left knee Impairments are contributing to the following functional limitations: 1. Inability to safely ambulate without assistive device 2. Increase completion time for mobility ADL performance 3. Increased fall risk Patient is assessed as a 88274 moderate complexity based on the following: History: 56-year-old male with impairment level findings, functional limitations, and past medical history as indicated above Examination: Demonstrable impairment in strength, balance, and mobility level with underlying impairments and functional limitations as documented above Presentation: Evolving Decision Makin moderate complexity Goals: N/A. PT evaluation and 1-2 treatment sessions only for functional mobility training using recommended AD and for HEP instruction. Plan of Care/Treatment Plan: N/A. PT evaluation and 1-2 treatment session only for functional mobility training using recommended AD and for HEP instruction. DISCHARGE RECOMMENDATIONS: [] Home with no services [] [] Home with services [specify] [X] Home with outpatient PT. Home when medically cleared by orthopedic surgeon. Recommend outpatient PT services in order to maximize functional mobility outcomes and facilitate return to independent community ambulation without an assistive device. [] SNF for continued rehabilitation [] [] Penitentiary Care [] [] SNF versus LTC based on ability to participate and progress [] TREATMENT CODE/TIME: 9716 2 x 20 minutes, 03810 x 25 minutes beginning at 16:25 PM. Thank you for the opportunity to participate in the care of this patient. Jie Da Silva PT, DPT, CLT [facility] [place], [place]
--- NOTE | 2022-07-23 20:33 | W.ANESPOSTOP ---
Postoperative Evaluation Date, Time and Location Date Performed: 07/23/22 Time Performed: 15:55 Patient Location: Day Surgery Unit Vital Signs Most Recent Imported Vital Signs: Most Recent Vital Signs Temp Pulse Resp BP Pulse Ox 35.9 C L 72 18 137/100 H 98 07/23/22 17:35 07/23/22 17:35 07/23/22 17:35 07/23/22 17:35 07/23/22 17:35 Pain Score Most Recent Pain Score: Most Recent Pain Score Pain Level 2 07/23/22 17:35 Assessment Mental Status: Awake (Alert & Oriented to Patient Baseline) Airway and Respiratory Function: Patent airway with normal (patient baseline) respiratory exam Cardiovascular Function: Hemodynamically Stable Hydration Status: Adequately Hydrated Nausea & Vomiting: No Nausea or Vomiting Pain: Pain is tolerable per patient Peripheral Nerve Block: Regional nerve block not resolved at time of post operative discharge Teaching Patient Teaching: Discussed Safe Use of Pain Medication Given Recent Anesthesia and Discussed Safe Use of Pain Medication Given Likely or Known CLAUDINE
== END 2022-07-23 17:54 | disposition home or self-care (01) ==
PROVIDERS: PCP Nurse Practitioner; Visit Provider Student in an Organized Health Care Education/Training Program
PROC: (CPT 27447; principal; 2022-07-23 12:30)
DX: M17.12 Unilateral primary osteoarthritis, left knee (principal); Z68.42 Body mass index [BMI] 45.0-49.9, adult; G47.33 Obstructive sleep apnea (adult) (pediatric); E66.9 Obesity, unspecified
CPT/HCPCS: 27447; 20985; 97162; 97530; J0690; J1170; J2250; J2405; J3360

== ENCOUNTER 2022-08-06 09:32 | Outpatient (CLI) | payer OTHER, SELFPAY ==
--- NOTE | 2022-08-06 09:00 | DI.RAD_ITS ---
Exam(s) XR KNEE LT 1V EXAM: XR KNEE LT 1V CLINICAL HISTORY: left knee f/u. TECHNIQUE: 2D digital imaging was performed. COMPARISON: CR XR KNEE LT 2V AP,LAT from 06/10/2022 FINDINGS: Single lateral view: Position of the left knee prosthesis is satisfactory on this lateral view. No fractures. No looseni ng. No radiographic evidence of osteomyelitis. IMPRESSION: Satisfactory appearance. DATA REPOSITORY: RADIATION DOSE DELIVERED:
--- NOTE | 2022-08-06 09:00 | DI.RAD_ITS ---
Exam(s) XR STANDING ALIGNMENT EXAM: XR STANDING ALIGNMENT CLINICAL HISTORY: left knee f/u. TECHNIQUE: 2D digital imaging was performed. COMPARISON: CR XR STANDING ALIGNMENT from 06/10/2022 FINDINGS: 3 views There has been interval placement of a left knee prosthesis which appears to be in satisfactory posit ion. There is moderate narrowing of the medial compartment of the opposite-right knee again noted. Hips appear unremarkable. Talar domes are tilted bilaterally at the level of the ankles. Bone density normal. No osseous lesions evident. IMPRESSION: As above. DATA REPOSITORY: RADIATION DOSE DELIVERED:
== END 2022-08-06 09:33 | disposition home or self-care (01) ==
LOC: DIORS 09:32
PROVIDERS: PCP Nurse Practitioner; Referring Provider Nurse Practitioner; Visit Provider Physician Assistant
DX: M17.12 Unilateral primary osteoarthritis, left knee (principal); Z96.652 Presence of left artificial knee joint
CPT/HCPCS: 73560; 77073

== ENCOUNTER 2023-02-03 06:06 | Day surgery (SDC) | payer OTHER, SELFPAY ==
--- NOTE | 2023-02-02 19:08 | W.PM.DSUDISC ---
Date of service: 02/03/23 Time of Service: 08:25 Discharge Plan Disposition Patient Disposition: Home Condition: Good Discharge Details Reason For Visit: Colonoscopy Attending Provider: Yunior Dodd Primary Care Provider: Yael Almaguer Home Meds and New Rx's Prescriptions: Continued acyclovir 400 mg tablet 400 mg PO HS Qty: 90 3RF Rx Instructions: dx: suppression therapy bisoprolol fumarate 10 mg tablet 10 mg PO HS Qty: 90 3RF trazodone 50 mg tablet 50 mg PO HS Qty: 90 3RF omeprazole magnesium [Prilosec OTC] 20 mg Tablet,Delayed Release (Dr/Ec) 20 mg PO PRN PRN acetaminophen 500 mg tablet 500 mg PO Q6H PRN (Reason: pain) Qty: 60 2RF ibuprofen 400 mg Tablet 400 mg PO PRN Discontinued polyethylene glycol 3350 17 gram/dose powder 238 g PO ONCE Qty: 238 0RF Rx Instructions: take per colonoscopy instructions bisacodyl [Dulcolax (bisacodyl)] 5 mg tablet,delayed release (DR/EC) 5 mg PO ONCE Qty: 4 0RF Rx Instructions: take per colonoscopy instructions Discharge Instructions Instructions: Hemorrhoids (GEN), Colorectal Polyps (GEN) Additional Instructions: Enoch, we were able to complete your colonoscopy today. As we discussed before the procedure, you did have a little bit of difficulty with the sedation that we typically use. In that regard, you did require intubation (insertion of a breathing tube to help with your airway) during the procedure. As result, you might have a little bit of a sore throat over the next few days. With regards to the colonoscopy procedure itself, I did see some signs of internal hemorrhoids, which I suspect is the sensation that you have been experiencing with your bowel movements. I have attached some general information on hemorrhoids here, and I would encourage you to focus on staying well-hydrated, and maintaining soft bulky bowel movements. It may be helpful to add some dietary fiber (in the form of Metamucil or Senokot, or similar rapz-[id number]-[id number] products) to achieve that. I also found 1 polyp. It was rather small. I did remove it. I will be in touch when I have the results of the pathology report for my final recommendations. 1. If tolerated, consume a soft, low fiber diet for 1-2 days. 2. Do not drive, drink alcohol, operate machinery, make critical decisions, or do activities that require coordination or balance for 24 hours. 3. Because air was put into your colon during the procedure, expelling air from your rectum (passing gas or farting) is normal. 4. You may not have a bowel movement for 1-3 days because of the colonoscopy prep. This is normal. 5. Go directly to the emergency room if you notice any of the following: Develop chills (warm to touch), or if you have a thermometer and your temperature is above 101 Difficulty breathing or difficultly swallowing Persistent vomiting Severe abdominal pain, other than gas cramps Severe chest pain Black, tarry stools Any bleeding ? exceeding one tablespoon 6. Call your physician if the site where your intravenous was started becomes red, swollen, painful, and warm to touch. 7. Your physician has reviewed your pre-procedure medications. Please continue to take those medications as previously ordered. You will be given specific information/education regarding any changes to your medications before leaving. Activity:: Activity as Tolerated Diet:: As Tolerated Discharge Orders Discharge Orders: Discharge Order (Routine); Ordered 02/02/23 Ordered By: Yunior Dodd DS: Diagnosis Discharge Diagnosis (1) Screen for colon cancer: Status: Acute Asessment and Plan: Follow-up on polypectomy results
--- NOTE | 2023-02-02 19:10 | COLE_ITS ---
Date of service: 02/03/23 Time of Service: 08:28 Colonoscopy Report Date of procedure: 02/03/23 Pre-op diagnosis general: Screening colonoscopy Post-op diagnosis procedure note: other (Internal hemorrhoids, colon polyp at 40 cm) Procedure: Colonoscopy with polypectomy Surgeon: Yunior Dodd Anesthesia Type: General LMA/ETT Estimated blood loss (mL): 5 Pathology: none sent Complications: Other (Inability to tolerate natural airway sedation, required endotracheal intubation.) Disposition: same day Indications: Enoch is a 57 year old man with a first degree relative with colon cancer who presents for a screening colonoscopy Prep: Miralax/Dulcolax Procedure Start Time: 07:55 Procedure End Time: 08:10 Retraction Time: 11 Findings: Grade 2 internal hemorrhoids, colon polyp at 40 cm Procedure Description: We started with natural airway general anesthesia. However, the patient remained fairly mobile, and with increasing levels of sedation, we felt the safest thing to do at that point was transition to endotracheal intubation for completion of the colonoscopy. Once the airway was established and secured, I began by performing an external anorectal exam.? Perineum and skin were normal, as was the anal verge.? There were mild external hemorrhoids that appeared nonthrombosed..? Next, I performed a digital rectal exam.? I did not appreciate any abnormal findings.? Next, I advanced a colonoscope into the rectal vault.? I performed retroflexion.? There appears to be grade 2 internal hemorrhoids.? Using insufflation, I then advanced the colonoscope beyond the rectal folds and into the sigmoid colon before advancing towards the cecum.? The quality of the prep was excellent.? The scope was noted to be in the cecum by identification of the ileocecal valve and appendiceal orifice.? I then began withdrawing the col onoscope using repeated irrigation as necessary for full evaluation of the colonic mucosa. Around 40 cm from the anal verge I identified a 0.5 cm polyp. ?It appeared sessile in character. It was a little bit erythematous. ?I was able to remove this with a cold forcep polypectomy. ?I examined the site, and there was minimal bleeding. ?Once this was completed, I continued to withdraw the scope and examine the remainder of the colonic mucosa.?Once the scope was withdrawn to the level of the rectum, great care was taken to examine portions of the rectal folds.? Finally, the scope was withdrawn and the patient was brought to the same-day surgery recovery unit as the anesthetic wore off. ?The findings and instructions were shared with the patient prior to discharge.
[2023-02-03] VITALS (7 sets, daily range): BP systolic 108–137; BP diastolic 59–94; PULSE 72–93; RESP 14–25; TEMP 36.2–36.8; O2SAT 92–96; BMI 45.1
[2023-02-03] MEDS: Lactated Ringers 1,000 ML 80 ML IV (06:40)
--- NOTE | 2023-02-03 06:59 | W.ANESPRE ---
General Info Date of Service Date Performed: 02/03/23 Height: 6 ft Weight: 151 kg Body Mass Index (BMI): 45.1 Surgical Procedure: Operation Date: 02/03/23 07:35 Proposed Procedure Side Surgeon p Colonoscopy Yunior Dodd MD Actual Procedure Side Surgeon p Colonoscopy Yunior Dodd MD Pre-Op Diagnosis Post-Op Diagnosis Colonoscopy Meds Allergies and Home Medications Allergies Allergy/AdvReac Type Severity Reaction Status Date / Time Penicillins Allergy Intermediate Hives Verified 02/03/23 06:30 cyclobenzaprine HCl AdvReac Intermediate sleepiness Verified 02/03/23 06:30 [From Flexeril] Home Medication Medication Instructions Recorded acyclovir 400 mg tablet 400 mg PO HS #90 tabs 06/10/22 bisoprolol fumarate 10 mg tablet 10 mg PO HS #90 tabs 06/10/22 trazodone 50 mg tablet 50 mg PO HS #90 tabs 06/10/22 acetaminophen 500 mg tablet 500 mg PO Q6H PRN pain #60 tabs 07/23/22 omeprazole magnesium 20 mg 20 mg PO PRN PRN 07/23/22 tablet,delayed release (Prilosec OTC) ibuprofen 400 mg tablet 400 mg PO PRN 02/03/23 Current Visit Medications: Current Medications Generic Name Dose Route Start Last Admin Trade Name Freq PRN Reason Stop Dose Admin Hyoscyamine Sulfate 0.125 mg 02/02/23 19:11 Hyoscyamine 0.125 Mg Sl/Oral/Chew SL 03/04/23 19:10 DIRECTED PRN Ringer's Solution 1,000 mls @ 80 mls/hr 02/03/23 06:00 02/03/23 06:40 IV 02/03/23 23:59 80 mls/hr INFUSION SHARATH Administration IV Miscellaneous Supplies 1 each 02/03/23 06:00 Iv Access IV 02/03/23 23:59 DIRECTED SHARATH Ondansetron HCl 4 mg 02/02/23 19:11 Ondansetron 4 Mg/2 Ml Vial IVP 03/04/23 19:10 Q4H PRN PRN Nausea / Vomiting Sodium Chloride 0 ml 02/03/23 06:00 Normal Saline Flush 10 Ml Syr IV 02/03/23 23:59 PRN PRN Sodium Chloride 0 ml 02/03/23 06:00 Normal Saline 10 Ml Vial IJ 02/03/23 23:59 DIRECTED PRN Sterile Water 0 ml 02/03/23 06:00 Water,Injection,Sterile 10 Ml Vial IJ 02/03/23 23:59 DIRECTED PRN PFSH Active Problems Active Problems: Problem Status Onset Code Screen for colon cancer Z12.11 Primary osteoarthritis of right knee M17.11 Sebaceous cyst L72.3 Lipoma D17.9 Pre-diabetes R73.03 Right knee pain M25.561 Acrochordon L91.8 Essential hypertension 12/03/16 I10 Screening for viral disease Z11.59 Family history of diabetes mellitus 01/16/12 Z83.3 Primary osteoarthritis of left knee M17.12 Family hx of colon cancer Z80.0 Herpes simplex with unspecified complication 09/07/12 B00.89 Reflux esophagitis ~04/10/20 K21.00 Sleep apnea 02/16/13 G47.30 Body mass index (BMI) greater than 40 Dysphagia R13.10 Medical History Medical History Adenoma of large intestine (12/07/12) 11/2012Susan Repeat colonoscopy in 3 years Adult BMI > 30 (12/13/15) Anal fissure (10/08/12) Carpal tunnel syndrome on both sides (07/22/16) Cervicalgia (01/16/12) Colon polyp Family hx of prostate cancer (01/16/12) Step brother (same mother) H. pylori infection (05/18/14) 05/2014 Heartburn Heartburn (02/16/13) 10-YEARS, USING OTC OMEPRAZOLE Hemorrhoids Hemorrhoids, internal (11/21/15) Hypertriglyceridemia (12/27/15) Internal derangement of left knee Obesity Obstructive sleep apnea syndrome Medical History Comments:: pt. reports once he had a difficult time waking up and his eyes were red. Pt. reports having a gulp of water at 0500 today Surgical History Surgical History Endoscopic Carpal Tunnel release (06/19/16) right History of total left knee replacement (TKR) (07/23/22) S/P lateral meniscectomy of left knee sp arthroscopic partial left lateral meniscectomy and limited synovectomy 10/21/18 Tobacco Smoking/Tobacco Use Status: Never Second hand exposure: No Alcohol Alcohol Intake: current Alcohol intake frequency: holidays/special occasions only Substance Use Substance use: Daily Substance use type: marijuana Details: marijuana t-2(Smokes daily) a bowl. alcohol: november Vital Signs and Lab Results Vital Signs Most Recent Vital Signs in EMR: Most Recent Vital Signs Temp Pulse Resp BP Pulse Ox 36.5 C 72 14 130/94 H 96 02/03/23 06:26 02/03/23 06:26 02/03/23 06:26 02/03/23 06:26 02/03/23 06:26 Lab Results Blood Type / Crossmatch: No Data to Display Complete Blood Count: No Data to Display Complete Metabolic Panel: No Data to Display Liver Function Panel: No Data to Display Coagulation Panel: No Data to Display Cardiac Panel: No Data to Display Arterial Blood Gas: No Data to Display Venous Blood Gas: No Data to Display Pancreas Panel: No Data to Display Thyroid Panel: No Data to Display Infectious Disease: No Data to Display Blood Cultures: No Data to Display Toxicology Panel: No Data to Display Anesthesia Assessment and Plan Anesthesia History Personal History: Awareness Under Anesthesia Family History: No Family History of Anesthesia Complications Exercise Tolerance Exercise Tolerance: Metabolic Equivalents>4 Pertinent Negatives Pertinent Negatives: No Major Cardiovascular Symptoms or Complaints and No Major Pulmonary Symptoms or Complaints Cardiac & Pulmonary Exam Cardiac Exam: Normal S1/S2 Heart Sounds Pulmonary Exam: Clear Bilateral Breath Sounds Implantable Cardiac Device Does patient have a Pacemaker or an ICD?: No Airway Exam Known Difficult Airway: No Mallampati Class: 2 Mouth Opening: Normal (> 3cm) Thyromental Distance: Greater than 3 cm Neck Range of Motion: Full ROM Neck Circumference: Normal Teeth Condition: Normal Dentition ASA Classification ASA Score: ASA 3 Emergency Case?: No NPO Status NPO Status: NPO Clears >2 hours, Solids >8 hours Anesthesia Plan Resuscitation Status: Full Code Anesthesia Technique: General Anesthesia Airway Planned: Natural Airway Monitors Used: Standard Monitors
--- NOTE | 2023-02-03 08:10 | BOWEL_PTH ---
PATIENT: Enoch Massey LOC: [facility] U#:[id number] AGE/SX: 57/M ROOM: RE02/03/[address]: Yunior Dodd MD : 1965 BED: DIS: 02/03/2023 SPEC #: [id number] RECD: 02/03/23 12:45 STATUS: PATRICK RE #: [id number] PAULINA: 02/03/23 08:[address]: Yunior Dodd DEPT: Surgical Specimen RECD BY: Cheri Zeng ENTERED: 02/03/23 12:45 SP TYPE: Bowel OTHR DR: Yael Almaguer APRN Tissues: 1 - BIOPSY BOWEL Procedures: GROSS AND MICRO LEVEL 4 Comments: [id number]
--- NOTE | 2023-02-03 09:17 | W.ANESPOSTOP ---
Postoperative Evaluation Date, Time and Location Date Performed: 02/03/23 Time Performed: 09:17 Patient Location: Day Surgery Unit Vital Signs Most Recent Imported Vital Signs: Most Recent Vital Signs Temp Pulse Resp BP Pulse Ox 36.5 C 76 18 117/66 96 02/03/23 08:44 02/03/23 08:44 02/03/23 08:44 02/03/23 08:44 02/03/23 08:44 Pain Score Most Recent Pain Score: Most Recent Pain Score Pain Level 0 02/03/23 08:44 Assessment Mental Status: Awake (Alert & Oriented to Patient Baseline) Airway and Respiratory Function: Patent airway with normal (patient baseline) respiratory exam Cardiovascular Function: Hemodynamically Stable Hydration Status: Adequately Hydrated Nausea & Vomiting: No Nausea or Vomiting Pain: Pt. Denies Any Pain Peripheral Nerve Block: Patient did not receive a nerve block
== END 2023-02-03 09:20 | disposition home or self-care (01) ==
PROVIDERS: PCP Nurse Practitioner; Visit Provider Surgery
PROC: 0DJD8ZZ Inspection of Lower Intestinal Tract, Via Natural or Artificial Opening Endoscopic (ICD-10-PCS; CPT 45378; principal; 2023-02-03 07:30)
DX: Z12.11 Encounter for screening for malignant neoplasm of colon (principal); D12.5 Benign neoplasm of sigmoid colon; K64.1 Second degree hemorrhoids; Z80.0 Family history of malignant neoplasm of digestive organs; K64.4 Residual hemorrhoidal skin tags
CPT/HCPCS: 45380; 88305; J2001; J2250; J2704

== ENCOUNTER 2023-07-25 09:20 | Outpatient (CLI) | payer OTHER, SELFPAY ==
--- NOTE | 2023-07-25 08:30 | DI.RAD_ITS ---
Exam(s) XR KNEE LT 2V AP,LAT EXAM: XR KNEE LT 2V AP,LAT CLINICAL HISTORY: ANNUAL F/U L TKA. TECHNIQUE: 2D digital imaging was performed. Three views. COMPARISON: CR XR STANDING ALIGNMENT from 08/06/2022 CR XR KNEE LT 1V from 08/06/2022 FINDINGS: BONES: No acute fracture is present. No bony destructive lesion is seen. JOINTS: The knee is normally aligned. No joint effusion is seen. There has been no change in the to nita knee prosthesis. SOFT TISSUE: Normal. IMPRESSION: Stable appearance of total knee prosthesis. DATA REPOSITORY: RADIATION DOSE DELIVERED:
== END 2023-07-25 09:21 | disposition home or self-care (01) ==
LOC: DIORS 09:20
PROVIDERS: PCP Nurse Practitioner; Visit Provider Student in an Organized Health Care Education/Training Program
DX: Z96.652 Presence of left artificial knee joint (principal); Z47.1 Aftercare following joint replacement surgery
CPT/HCPCS: 73560

== ENCOUNTER 2023-11-26 06:12 | Day surgery (SDC) | payer OTHER, SELFPAY ==
[2023-11-26 06:28] VITALS: BP 152/99; PULSE 65; RESP 16; TEMP 36.2; O2SAT 97
[2023-11-26] MEDS: Lactated Ringers 1,000 ML 80 ML IV (06:36)
--- NOTE | 2023-11-26 07:01 | W.PM.DSUDISC ---
Date of service: 11/26/23 Time of Service: 07:01 Discharge Plan Disposition Patient Disposition: Home Condition: Good Discharge Details Reason For Visit: L ECTR Attending Provider: Tony Barrett Primary Care Provider: Yael Almaguer Home Meds and New Rx's Prescriptions: New acetaminophen 500 mg tablet 1,000 mg PO TID Qty: 90 0RF hydrocodone-acetaminophen 5-325 mg tablet 1 tab PO Q6H PRN (Reason: pain) Qty: 4 0RF ibuprofen 600 mg tablet 600 mg PO TID PRN (Reason: pain) Qty: 90 0RF Continued acyclovir 400 mg tablet 400 mg PO HS Qty: 90 3RF Rx Instructions: dx: suppression therapy bisoprolol fumarate 10 mg tablet 10 mg PO HS Qty: 90 3RF trazodone 50 mg tablet 50 mg PO HS Qty: 90 3RF omeprazole magnesium [Prilosec OTC] 20 mg Tablet,Delayed Release (Dr/Ec) 20 mg PO PRN PRN Discontinued acetaminophen 500 mg tablet 500 mg PO Q6H PRN (Reason: pain) Qty: 60 2RF ibuprofen 400 mg Tablet 400 mg PO DIRECTED PRN Discharge Instructions Stand Alone Forms: Nena Blanchard Tunnel Release Referrals: Tony Barrett MD [ [facility] STAFF PHYSICIAN] - Activity:: Activity as Tolerated Remove Dressings/Wound Care:: 48 hours Shower/Bathe:: 48 hours Diet:: As Tolerated Discharge Orders Discharge Orders: Discharge Order (Routine); Ordered 11/26/23 Ordered By: Андрей Talley DS: Diagnosis Discharge Diagnosis (1) Left carpal tunnel syndrome: Status: Acute
--- NOTE | 2023-11-26 07:04 | ANES.PREOP_ITS ---
General Info Date of Service Date Performed: 11/26/23 Height: 6 ft Weight: 154.9 kg Body Mass Index (BMI): 46.3 Surgical Procedure: Operation Date: 11/26/23 07:40 Proposed Procedure Side Surgeon p Wrist ECTR Left Tony Barrett MD Meds Allergies and Home Medications Allergies Allergy/AdvReac Type Severity Reaction Status Date / Time Penicillins Allergy Intermediate Hives Verified 11/26/23 06:18 cyclobenzaprine HCl AdvReac Intermediate sleepiness Verified 11/26/23 06:18 [From Flexeril] Home Medication Medication Instructions Recorded omeprazole magnesium 20 mg 20 mg PO PRN PRN 07/23/22 tablet,delayed release (Prilosec OTC) acyclovir 400 mg tablet 400 mg PO HS #90 tabs 06/30/23 bisoprolol fumarate 10 mg tablet 10 mg PO HS #90 tabs 09/09/23 trazodone 50 mg tablet 50 mg PO HS #90 tabs 09/09/23 acetaminophen 500 mg tablet 1,000 mg (2 x 500 mg) PO TID #90 11/26/23 tabs hydrocodone 5 mg-acetaminophen 325 1 tab PO Q6H PRN pain #4 tabs 11/26/23 mg tablet ibuprofen 600 mg tablet 600 mg PO TID PRN pain #90 tabs 11/26/23 Current Visit Medications: Current Medications Generic Name Dose Route Start Last Admin Trade Name Freq PRN Reason Stop Dose Admin Acetaminophen 650 mg 11/26/23 07:00 Acetaminophen 325 Mg Tab PO 12/26/23 06:59 Q4H PRN PRN Hydrocodone Bitart/Acetaminophen 0 tab 11/26/23 07:00 Hydrocodone 5/Acetaminophen 325 Tab PO 12/26/23 06:59 Q3H PRN PRN Pain Ringer's Solution 1,000 mls @ 80 mls/hr 11/26/23 06:00 11/26/23 06:36 IV 11/26/23 23:59 80 mls/hr INFUSION SHARATH Administration Cefazolin Sodium 3,000 mg/ 100 mls @ 200 mls/hr 11/26/23 06:00 Sodium Chloride IVPB 11/26/23 23:59 PREOP SHARATH Tranexamic Acid/Sodium Chloride 1,000 mg in 100 mls @ 600 mls/hr 11/26/23 06:00 IVPB 11/26/23 23:59 PREOP SHARATH IV Miscellaneous Supplies 1 each 11/26/23 06:00 Iv Access IV 11/26/23 23:59 DIRECTED SHARATH Sodium Chloride 0 ml 11/26/23 06:00 Normal Saline Flush 10 Ml Syr IV 11/26/23 23:59 PRN PRN Sodium Chloride 0 ml 11/26/23 06:00 Normal Saline 10 Ml Vial IJ 11/26/23 23:59 DIRECTED PRN Sterile Water 0 ml 11/26/23 06:00 Water,Injection,Sterile 10 Ml Vial IJ 11/26/23 23:59 DIRECTED PRN PFSH Active Problems Active Problems: Problem Status Onset Code 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 Left carpal tunnel syndrome G56.02 Anesthesia complication T88.59XA Screen for colon cancer Z12.11 Primary osteoarthritis of right knee M17.11 Sebaceous cyst L72.3 Lipoma D17.9 Pre-diabetes R73.03 Right knee pain M25.561 Acrochordon L91.8 Essential hypertension 12/03/16 I10 Screening for viral disease Z11.59 Family history of diabetes mellitus 01/16/12 Z83.3 Primary osteoarthritis of left knee M17.12 Family hx of colon cancer Z80.0 Herpes simplex with unspecified complication 09/07/12 B00.89 Reflux esophagitis ~04/10/20 K21.00 Sleep apnea 02/16/13 G47.30 Body mass index (BMI) greater than 40 Dysphagia R13.10 Medical History Medical History Obesity Internal derangement of left knee Hypertriglyceridemia (12/27/15) Hemorrhoids, internal (11/21/15) Heartburn (02/16/13) 10-YEARS, USING OTC OMEPRAZOLE H. pylori infection (05/18/14) 05/2014 Family hx of prostate cancer (01/16/12) Step brother (same mother) Carpal tunnel syndrome on both sides (07/22/16) Cervicalgia (01/16/12) Anal fissure (10/08/12) Adult BMI > 30 (12/13/15) Adenoma of large intestine (12/07/12) 11/2012Susan Repeat colonoscopy in 3 years Hemorrhoids Colon polyp Heartburn Obstructive sleep apnea syndrome Medical History Comments:: Patient has failed multiple general anesthetics with natural airway. High anesthetic need and challenge to maintain patent airway. Recommend intubation in future. (Grade 2A with [place]) Surgical History Surgical History (Updated 11/26/23 @ 07:01 by FATIMAH Mitchell) History of colonoscopy (~01/2023) History of total left knee replacement (TKR) (07/23/22) S/P lateral meniscectomy of left knee sp arthroscopic partial left lateral meniscectomy and limited synovectomy 10/21/18 Endoscopic Carpal Tunnel release (06/19/16) right Tobacco Smoking/Tobacco Use Status: Never Second hand exposure: No Alcohol Alcohol Intake: never Substance Use Substance use: Daily Substance use type: marijuana Details: yesterday last dose Vital Signs and Lab Results Vital Signs Most Recent Vital Signs in EMR: Most Recent Vital Signs Temp Pulse Resp BP Pulse Ox 36.2 C L 65 16 152/99 H 97 11/26/23 06:28 11/26/23 06:28 11/26/23 06:28 11/26/23 06:28 11/26/23 06:28 Lab Results Blood Type / Crossmatch: No Data to Display Complete Blood Count: No Data to Display Complete Metabolic Panel: No Data to Display Liver Function Panel: No Data to Display Coagulation Panel: No Data to Display Cardiac Panel: No Data to Display Arterial Blood Gas: No Data to Display Venous Blood Gas: No Data to Display Pancreas Panel: No Data to Display Thyroid Panel: No Data to Display Infectious Disease: No Data to Display Blood Cultures: No Data to Display Toxicology Panel: No Data to Display Anesthesia Assessment and Plan Anesthesia History Personal History: Other Family History: No Family History of Anesthesia Complications Exercise Tolerance Exercise Tolerance: Metabolic Equivalents>4 Pertinent Negatives Pertinent Negatives: No Symptoms of GERD and No Major Cardiovascular Symptoms or Complaints Cardiac & Pulmonary Exam Cardiac Exam: Normal S1/S2 Heart Sounds Pulmonary Exam: Clear Bilateral Breath Sounds Implantable Cardiac Device Does patient have a Pacemaker or an ICD?: No Airway Exam Known Difficult Airway: No Mallampati Class: 2 Mouth Opening: Normal (> 3cm) Thyromental Distance: Greater than 3 cm Neck Range of Motion: Full ROM Neck Circumference: Normal Teeth Condition: Normal Dentition ASA Classification ASA Score: ASA 3 Emergency Case?: No NPO Status NPO Status: NPO Clears >2 hours, Solids >8 hours Anesthesia Plan Resuscitation Status: Full Code Anesthesia Technique: MAC Anesthesia Airway Planned: Natural Airway Pain Management: Surgeon and patient request nerve block Monitors Used: Standard Monitors
[2023-11-26 07:05] VITALS: BMI 46.3
[2023-11-26 07:16] VITALS: BP 138/97; PULSE 61; RESP 14; TEMP 36.5; O2SAT 97
[2023-11-26 07:33] VITALS: BP 140/90; PULSE 64; RESP 20; TEMP 36.4; O2SAT 96
[2023-11-26] MEDS: ceFAZolin 3,000 MG in Normal Saline 100 ML 200 MG IVPB (07:37)
[2023-11-26] MEDS: Lidocaine 1% Multi-Dose W/EPI 1/100,000 50 ML VIAL (07:48)
[2023-11-26 07:53] VITALS: BP 125/92; PULSE 66; RESP 16; TEMP 36.3; O2SAT 95
--- NOTE | 2023-11-26 07:58 | W.ANESNERVE ---
Nerve Block Single Injection Procedure Date and Time Date Performed: 11/26/23 Procedure Start: 07:25 Location Where Procedure Performed Procedure Location: Day Surgery Unit Reason Performed: Postoperative Analgesia Requesting Provider: Tony Barrett Timeout Performed Timeout Performed: Yes Monitoring Used ECG, Blood Pressure, SpO2 and See EMR for corresponding vital signs Sterility Sterility: Hand Hygiene, Surgical Cap, Surgical Mask, Sterile Gloves and Chlorhexidine Sedation Given During Procedure Sedation Given (Indicate Dose Given): No Sedation given Patient Mental Status Patient Mental Status: Awake Nerve Block 1st Nerve Block: Laterality: Left Block Type: Median Ultrasound Image Saved?: No Needle / Catheter Used: Other Local Anesthetic Bolus (Indicate Dose Given): Lidocaine used for local infiltration of skin and Lidocaine 2% Dose:: 5ml Additives (Indicate Dose Given): None Ultrasound: Sterile probe cover and gel used Nerve Stimulator: Not Used Paresthesia: None Procedure Tolerated: No Complications and Patient tolerated well Procedure Outcome: Successful Performed By: Nilton Brand 2nd Nerve Block: Laterality: Left Block Type: Ulnar Ultrasound Image Saved?: Yes Needle / Catheter Used: 100mm SonoPlex II Local Anesthetic Bolus (Indicate Dose Given): Lidocaine 2% Dose:: 5ml Additives (Indicate Dose Given): None Ultrasound: Sterile probe cover and gel used Nerve Stimulator: Not Used Paresthesia: None Procedure Tolerated: No Complications and Patient tolerated well Procedure Outcome: Successful Performed By: Nilton Brand
--- NOTE | 2023-11-26 08:01 | W.ANESPOSTOP ---
Postoperative Evaluation Date, Time and Location Date Performed: 11/26/23 Time Performed: 08:01 Patient Location: Day Surgery Unit Vital Signs Most Recent Imported Vital Signs: Most Recent Vital Signs Temp Pulse Resp BP Pulse Ox 36.3 C L 66 16 125/92 H 95 11/26/23 07:53 11/26/23 07:53 11/26/23 07:53 11/26/23 07:53 11/26/23 07:53 Pain Score Most Recent Pain Score: Most Recent Pain Score Pain Level 0 11/26/23 07:53 Assessment Mental Status: Awake (Alert & Oriented to Patient Baseline) Airway and Respiratory Function: Patent airway with normal (patient baseline) respiratory exam Cardiovascular Function: Hemodynamically Stable Hydration Status: Adequately Hydrated Nausea & Vomiting: No Nausea or Vomiting Pain: Pt. Denies Any Pain Peripheral Nerve Block: Regional nerve block not resolved at time of post operative discharge
[2023-11-26 08:26] VITALS: BP 122/99; PULSE 64; RESP 16; TEMP 36.6; O2SAT 98
--- NOTE | 2023-11-26 10:35 | W.PM.OP ---
Date of service: 11/26/23 Time of Service: 07:40 Operative Note Operative Note DATE OF PROCEDURE: 11/26/23 PRE-OP DIAGNOSIS: Left Carpal Tunnel Syndrome POST-OP DIAGNOSIS: same PROCEDURE: Left Endoscopic Carpal Tunnel Release SURGEON: Tony Barrett ANESTHESIA TYPE: Primary Nerve Block Refer to Anesthesia Record ESTIMATED BLOOD LOSS: 0 PATHOLOGY: none sent TOURNIQUET TIME: 4 COMPLICATIONS: None Patient was transported to: same day Patient's condition: stable Indications: I have seen Enoch in clinic for symptoms of carpal tunnel syndrome. The numbness, tingling, and pain limited function. Clinical exam findings confirmed the diagnosis of carpal tunnel syndrome. Nonoperative measures such as bracing, time, activity modifications had been tried but disability and pain persisted. He had previously successful carpal tunnel release on the right side. I discussed carpal tunnel release with the patient. I reviewed the risks of the procedure to include, but not limited to, bleeding, infection, pain, stiffness, incomplete release, damage to nerves or vessels, persistent numbness, recurrence. Despite these risks, the patient elected to proceed. Findings: There was tightened carpal tunnel. This was dilated and released successfully with the endoscopic with increased space within the tunnel. The antebrachial fascia was released proximally freeing the median nerve at the wrist. Procedure Description: Enoch was greeted in the preoperative holding area where the correct side was identified and marked. The consent was reviewed with the patient and signed. The history and physical was updated. All questions were answered. He was taken back to the operating room. The patient was placed into the supine position on the operating room table with the left arm on an arm board. A nonsterile tourniquet was placed high onto the arm. All bony prominences were well padded. Prophylactic antibiotics in the form of Cefazolin were administered. The left arm was then prepped with Chloraprep and draped in a standard fashion with stockinette and extremity drape. A timeout to confirm correct identity, side and site, procedure, allergies, anesthesia, and medical concerns was performed. The surgical site was marked in the volar wrist creases in line with the radial border of the fourth ray. This area was anesthetized with approximately 6cc of 1% Lidocaine. The limb was then exsanguinated with an Esmarch. The skin was incised with a 15 blade, approximately 1cm. The skin only was cut and the deeper tissue was dissected bluntly with a tenotomy scissor, avoiding passing nerve and venous structures. The fascia was penetrated and opened bluntly. A two-prong skin hook was placed under this proximal fascial edge. A series of hamate finders were used to identify and dilate the carpal tunnel. Synovial elevator was used to free synovial attachments to the underside of the transverse carpal ligament. My thumb was kept in the palm to anushka the distal extent of the carpal tunnel and correctly position the hand. The Microaire endoscope was inserted without difficulty and without resistance. Excellent visualization showed horizontally running fibers of the transverse carpal ligament (TCL). The distal extent of the TCL was visualized and the end of the scope palpated with the thumb. The blade was elevated and withdrawn from distal to proximal. The TCL was split into two flaps. The endoscope was reinserted to confirm complete release and any remnant ligament was incised. The scope was withdrawn and the proximal aspect of the carpal tunnel was grossly inspected and appeared release with the median nerve visible. The antebrachial fascia at the level of the wrist was then freed from the overlying skin and then the underlying median nerve with blunt dissection. This was transected longitudinally for about 3cm proximal to the wrist incision. The wound was then irrigated with easy flow of irrigant distally and proximally. The incision was closed with a single 4-0 Nylon suture. The wound was dressed with Xeroform, Gauze, Kerlix and Thai. The tourniquet was deflated with the initial dressing and held with some pressure. Blood flow returned easily to all digits with capillary refill less than 2 seconds. The patient tolerated the procedure well and was returned to the Same Day Surgery area in a stable condition suffering no known complication.
== END 2023-11-26 08:53 | disposition home or self-care (01) ==
PROVIDERS: PCP Nurse Practitioner; Visit Provider Student in an Organized Health Care Education/Training Program
PROC: 01N54ZZ Release Median Nerve, Percutaneous Endoscopic Approach (ICD-10-PCS; CPT 29848; principal; 2023-11-26 07:30)
DX: G56.02 Carpal tunnel syndrome, left upper limb (principal)
CPT/HCPCS: 29848; J0690; J2004; J2250; J2405

== ENCOUNTER 2025-01-21 01:45 | Outpatient (CLI) | payer OTHER, SELFPAY ==
[2025-01-21 14:43] LABS: Abs Immature Grans 0.03 10^3/uL (0.0-0.06); Absolute Basophil Count 0.06 10^3/uL (0.0-0.2); Absolute Lymphocyte Count 3.73 10^3/uL (1.2-3.4); Absolute Monocyte Count 0.64 10^3/uL (0.1-0.8); Absolute Neutrophil Count 4.02 10^3/uL (1.2-6.7); Basophils % 0.7 %; Eosinophils % 4.5 %; HCT 45.7 % (40.0-50.0); HGB 14.8 g/dL (13.5-17.5); Immature Grans % 0.3 %; MCH 27.1 pg (27.0-33.0); MCHC 32.4 % (32.0-36.0); MCV 84 fL (80-95); MPV 10.1 fL (8.0-11.0); Monocytes % 7.2 %; Neutrophils % 45.3 %; Platelet Count 256 10^3/uL (130-400); RBC 5.47 10^6/uL (4.36-5.78); RDW 14.9 % (11.8-14.1); RDW-SD 45.2 fL; WBC 8.88 10^3/uL (4.4-10.8)
[2025-01-21 14:49] LABS: Bilirubin Negative (Negative); Blood Trace-lysed (Negative); Clarity Clear (Clear); Glucose Negative (Negative); Ketones Negative (Negative); Leukocyte Esterase Negative (Negative); Nitrite Negative (Negative); Specific Gravity 1.025 (1.005-1.025); Urobilinogen 0.2 mg/dL (Up to 0.2); pH 5.5 (5-8)
[2025-01-21 15:05] LABS: Bacteria Rare HPF (Negative); C & S Indicated? No; Casts Negative LPF (Negative); Crystals Negative HPF (Negative); Epithelial Cells Rare HPF (Negative); Mucus Negative (Negative); RBC 0-2 HPF (0-2); WBC 0-2 HPF (0-5)
[2025-01-21 15:45] LABS: ALT 39 U/L (16-63); AST 20 U/L (15-37); Albumin 3.7 g/dL (3.4-5.0); Alkaline Phosphatase 95 U/L (46-116); Anion Gap 7.8 mmol/L (3-11); BUN 14 mg/dL (7-18); Bilirubin, Total 0.6 mg/dL (0.2-1.0); CO2 27.2 mmol/L (21.0-32.0); CREATININE 1.2 mg/dL (0.70-1.30); Calcium 9.3 mg/dL (8.5-10.1); Calculated LDL 94 mg/dL (<100); Chloride 101 mmol/L (98-107); Cholesterol 160 mg/dL (<200); Estimated GFR 70.53 (mL/min/1.73m2); Glucose 83 mg/dL (74-106); HDL Cholesterol 40 mg/dL (>or=40); Potassium 4.2 mmol/L (3.5-5.1); Sodium 136 mmol/L (136-145); Triglyceride 130 mg/dL (<150)
[2025-01-21 22:49] LABS: PSA, Screening 0.6 ng/mL (<=3.5)
== END 2025-01-21 01:46 | disposition home or self-care (01) ==
LOC: LBO 01:45
PROVIDERS: Absent Provider Family Medicine; PCP Nurse Practitioner; Referring Provider Family Medicine; Visit Provider Family Medicine
DX: R73.03 Prediabetes; Z12.5 Encounter for screening for malignant neoplasm of prostate; Z13.29 Encounter for screening for other suspected endocrine disorder
CPT/HCPCS: 36415; 80053; 80061; 84153; 81003; 81015; 84443; 85025